=== PATIENT | male | born 1940 | race Two or more races ===

== ENCOUNTER 2016-06-05 17:13 | Emergency (ER) | payer OTHER, MEDICARE ==
--- NOTE | 2016-06-05 18:40 | REPUSA ---
CLINICAL HISTORY: Headache. TECHNIQUE: Multiple axial CT images were obtained through the brain without IV contrast material. COMMENTS: There is normal configuration of sella turcica. There are no intra or extra-axial collections. There is no mass effect or midline shift. There is no evidence of hematoma formation. No hydrocephalus is p resent. The ventricles are symmetrical. No abnormal calcifications are present. There is diffuse age-appropriate cerebellar and cerebral atrophy with proportionally dilated ventricl es and cortical sulci. There are bilateral periventricular and subcortical white matter hypolucencies compatible with mild c hronic microvascular disease. Otherwise, no significant focal abnormalities are seen either in the posterior fossa or supratentoria l compartment. IMPRESSION: 1. Age-appropriate cerebellar and cerebral atrophy. 2. Mild chronic microvascular disease. 3. No evidence of acute intracranial pathology. Thank you for your kind referral of this patient.
--- NOTE | 2016-06-05 19:00 | EDDOCDS ---
Nurse's Notes [facility] Name: Chris Montanez Age: 76 yrs Sex: Male : 1940 Arrival Date: 06/05/2016 Time: 17:13 Bed TR8 Private MD: Lorna Delgado Abdul; Lorna Delgado Diagnosis: Headache;Strain of muscle and tendon of back wall of thorax-right trapezius Presentation: 06/05 17:17 Presenting complaint: Patient states: that he has a pain on the top of his head that ms18 has been there for 2-3 days. Pt states that the pain goes into his R shoulder area. Adult Sepsis Screening: The patient does not have new or worsening altered mentation. Patient's respiratory rate is less than 22. Systolic blood pressure is greater than 100. Patient has a qSOFA score of 0- Negative Sepsis Screen. Suicide/Homicide risk assessment- the patient denies having any suicidal and/or homicidal ideations and does not present with any other emotional, behavioral or mental health complaints. Status: Patient is not a support services specialist or dependent. Transition of care: patient was not received from another setting of care. 17:17 Acuity: YAS Level 3 ms18 17:17 Method Of Arrival: Walkin/Carried/Asstd ms18 Triage Assessment: 17:24 General: Appears in no apparent distress, comfortable, Behavior is appropriate for age, ms18 cooperative. Pain: Location: right parietal area, right side of the back of head, back of neck, right trapezius and right scapular area Pain currently is 8 out of 10 on a pain scale. Neurological: Level of Consciousness is awake, alert, obeys commands, Oriented to person, place, time, Reports dizziness. Respiratory: Airway is patent Respiratory effort is even, unlabored. GI: Abdomen is non- distended Denies nausea, vomiting. Derm: Skin is pink, warm & dry. Historical: - Allergies: no known allergies; - Home Meds: 1. simvastatin 40 mg Oral tab 1 tab once daily 2. furosemide 80 mg Oral tab 1 tab 2 times per day 3. spironolactone 25 mg Oral tab 1 tab once daily 4. fenofibrate oral 48 mg oral 1 cap once daily 5. allopurinol 100 mg Oral tab 1 tab 2 times per day 6. glimepiride 4 mg Oral tab 1 tab once daily 7. levothyroxine 100 mcg Oral cap 1 cap once daily 8. Lantus 100 unit/mL Sub-Q soln 6 units in the AM - PMHx: High Cholesterol; Hypertension; Gout; Diabetes - IDDM: controlled; Hypothyroidism; - PSHx: Cataract Surgery- Bilateral; Cholecystectomy; - Social history: Smoking status: Patient states was never smoker of tobacco. No barriers to communication noted, The patient speaks fluent Ukrainian. - : The pt / caregiver states he / she is not on anticoagulants. Home medication list is obtained from the patient. - Exposure Risk Screening:: None identified. Screenin:56 Screening information is obtained from the patient. Fall risk: No risks identified. jjr Assistance ADL's: requires no assistance with activities of daily living. Abuse/DV Screen: The patient / caregiver reports he/she is: not in a situation that causes fear, pain or injury. Nutritional screening: No deficits noted. Advance Directives: Further advance directive information is declined. home support is adequate. Assessment: 18:54 General: Appears in no apparent distress, Behavior is appropriate for age. Pain: jjr Location: right trapezius and right side of the back of head. Neurological: No deficits noted. Respiratory: Airway is patent Respiratory effort is even, unlabored, Respiratory pattern is regular. Derm: No deficits noted. 18:59 General: dgtr does not want naprosyn rx due to her father's "kidney function" states jjr she will use ES tylenol. Vital Signs: 17:15 BP 142 / 71; Pulse 85; Resp 18; Temp 97.0(O); Pulse Ox 99% on R/A; Weight 79.38 kg (R); rs6 Height 5 ft. 8 in. (172.72 cm) (R); Pain 10/10; 17:15 Body Mass Index 26.61 (79.38 kg, 172.72 cm) rs6 Vitals: 17:15 Log In Time: June 05, 2016 at 17:15. 6 ED Course: 17:15 Patient visited by Simi Srinivasan, JESSICA. rs6 17:15 Lorna Delgado is Private Physician. rs6 17:15 Lorna Delgado is Private Physician. rs6 17:15 Patient moved to Waiting rs6 17:16 Patient visited by Simi Srinivasan PCA. rs6 17:16 Patient moved to Pre RCE rs6 17:18 Triage Initiated ms18 17:31 Patient moved to Triage 3 jb5 18:03 [facility]. dt4 18:03 Serge Duffy MD is Attending Physician. dt4 18:03 Patient visited by Felicity Whaley PA-C. dt4 18:26 Patient visited by Ya Nielsen PCA. jb5 18:49 CT Head Without Contrast Returned. EDMS 18:55 Patient moved to TR8 jb5 18:55 The patient / caregiver is instructed regarding the plan of care and ED course. jjr 18:56 No IV's were initiated during this patient's visit. No procedures done that require jjr assistance. Order Results: Radiology Order: CT Head Without Contrast Test: CT Head Without Contrast REASON FOR EXAMINATION: headache; ; CLINICAL HISTORY: Headache.; TECHNIQUE: Multiple axial CT images were obtained through the brain without IV contrast material.; COMMENTS:; There is normal configuration of sella turcica. There are no intra or extra-axial collections. There; is no mass effect or midline shift. There is no evidence of hematoma formation. No hydrocephalus is p; resent. The ventricles are symmetrical. No abnormal calcifications are present.; There is diffuse age-appropriate cerebellar and cerebral atrophy with proportionally dilated ventricl; es and cortical sulci.; There are bilateral periventricular and subcortical white matter hypolucencies compatible with mild c; hronic microvascular disease.; Otherwise, no significant focal abnormalities are seen either in the posterior fossa or supratentoria; l compartment.; IMPRESSION:; 1. Age-appropriate cerebellar and cerebral atrophy.; 2. Mild chronic microvascular disease.; 3. No evidence of acute intracranial pathology.; Thank you for your kind referral of this patient.; ; ; Outcome: 18:46 Discharge ordered by Provider. dt4 18:56 Discharge Assessment: patient administered narcotics - no. The following High Risk jjr Discharge criteria are identified: None. Discharged to home ambulatory, with parent. Condition: stable. Discharge instructions given to family, Instructed on discharge instructions, follow up and referral plans. Demonstrated understanding of instructions. CT Study completed. Property sent home with patient. 18:59 Patient left the ED. monikjr Signatures: Dispatcher [employer] EDMS Ya Nielsen, TWISTER HAND TWISTER HAND jb5 Geovanna Todd, RN RN jjr Felicity Whaley, PAMandoC PAJuanjose dt4 Grace Dorsey RN RN ms18 Craig, Simi, TWISTER HAND TWISTER HAND rs6 MTDD
--- NOTE | 2016-06-05 19:00 | EDDOCDS ---
Physician Documentation [facility] Name: Chris Montanez Age: 76 yrs Sex: Male : 1940 Arrival Date: 06/05/2016 Time: 17:13 Bed TR8 Private MD: Lorna Delgado Abdul; Lorna Delgado Disposition: 06/05/16 18:46 Discharged to Home/Self Care. Impression: Headache, Strain of muscle and tendon of back wall of thorax - right trapezius. - Condition is Stable. - Discharge Instructions: General Headache Without Cause, Muscle Strain. - Medication Reconciliation, Local Pharmacy Hours form. - Follow up: Emergency Department; When: As needed; Reason: Worsening of conditions. Follow up: Private Physician; When: 2 - 3 days; Reason: Wound/Symptom Recheck, Recheck today's complaints, Continuance of care. - Problem is new. - Symptoms are unchanged. Historical: - Allergies: no known allergies; - Home Meds: 1. simvastatin 40 mg Oral tab 1 tab once daily 2. furosemide 80 mg Oral tab 1 tab 2 times per day 3. spironolactone 25 mg Oral tab 1 tab once daily 4. fenofibrate oral 48 mg oral 1 cap once daily 5. allopurinol 100 mg Oral tab 1 tab 2 times per day 6. glimepiride 4 mg Oral tab 1 tab once daily 7. levothyroxine 100 mcg Oral cap 1 cap once daily 8. Lantus 100 unit/mL Sub-Q soln 6 units in the AM - PMHx: High Cholesterol; Hypertension; Gout; Diabetes - IDDM: controlled; Hypothyroidism; - PSHx: Cataract Surgery- Bilateral; Cholecystectomy; - Social history: Smoking status: Patient states was never smoker of tobacco. No barriers to communication noted, The patient speaks fluent Citizen Of [place]. - : The pt / caregiver states he / she is not on anticoagulants. Home medication list is obtained from the patient. - Exposure Risk Screening:: None identified. Vital Signs: 06/05 17:15 BP 142 / 71; Pulse 85; Resp 18; Temp 97.0(O); Pulse Ox 99% on R/A; Weight 79.38 kg / rs6 175 lbs (R); Height 5 ft. 8 in. (172.72 cm) (R); Pain 10/10; 17:15 Body Mass Index 26.61 (79.38 kg, 172.72 cm) rs6 MDM: 18:19 CT Head Without Contrast Ordered. EDMS Signatures: Dispatcher [employer] EDGeovanna Street, RN RN jjFelicity Arnett PA-C PAJuanjose dt4 Grace Dorsey RN RN ms18 MTDD
--- NOTE | 2016-06-07 20:00 | EDDOCDS ---
Physician Documentation [facility] Name: Chris Montanez Age: 76 yrs Sex: Male : 1940 Arrival Date: 06/05/2016 Time: 17:13 Bed TR8 Private MD: Lorna Delgado Abdul; Lorna Delgado Disposition: 06/05/16 18:46 Discharged to Home/Self Care. Impression: Headache, Strain of muscle and tendon of back wall of thorax - right trapezius. - Condition is Stable. - Discharge Instructions: General Headache Without Cause, Muscle Strain. - Medication Reconciliation, Local Pharmacy Hours form. - Follow up: Emergency Department; When: As needed; Reason: Worsening of conditions. Follow up: Private Physician; When: 2 - 3 days; Reason: Wound/Symptom Recheck, Recheck today's complaints, Continuance of care. - Problem is new. - Symptoms are unchanged. Historical: - Allergies: no known allergies; - Home Meds: 1. simvastatin 40 mg Oral tab 1 tab once daily 2. furosemide 80 mg Oral tab 1 tab 2 times per day 3. spironolactone 25 mg Oral tab 1 tab once daily 4. fenofibrate oral 48 mg oral 1 cap once daily 5. allopurinol 100 mg Oral tab 1 tab 2 times per day 6. glimepiride 4 mg Oral tab 1 tab once daily 7. levothyroxine 100 mcg Oral cap 1 cap once daily 8. Lantus 100 unit/mL Sub-Q soln 6 units in the AM - PMHx: High Cholesterol; Hypertension; Gout; Diabetes - IDDM: controlled; Hypothyroidism; - PSHx: Cataract Surgery- Bilateral; Cholecystectomy; - Social history: Smoking status: Patient states was never smoker of tobacco. No barriers to communication noted, The patient speaks fluent North Korean. - : The pt / caregiver states he / she is not on anticoagulants. Home medication list is obtained from the patient. - Exposure Risk Screening:: None identified. Vital Signs: 06/05 17:15 BP 142 / 71; Pulse 85; Resp 18; Temp 97.0(O); Pulse Ox 99% on R/A; Weight 79.38 kg / rs6 175 lbs (R); Height 5 ft. 8 in. (172.72 cm) (R); Pain 10/10; 17:15 Body Mass Index 26.61 (79.38 kg, 172.72 cm) rs6 MDM: 18:19 CT Head Without Contrast Ordered. EDMS :29 [facility] [place] Agreement was scanned into [employer] and attached to record. jp5 :29 Financial registration complete. jp5 22:41 T-Sheet-- Draft Copy was scanned into [employer] and attached to record. klr 06/06 16:18 Radiology Report was scanned into [employer] and attached to record. kf3 Signatures: Dispatcher MedHost EDVT Romero Vanessa, Reg Reg kf3 Geovanna Todd, RN RN jmonikr Felicity Whaley PA-C PA-C dt4 Grace Dorsey,RN RN ms18 Atif Joseph jp5 Brii Newsome The chart was reviewed and I authenticate all verbal orders and agree with the evaluation and treatment provided.Attachments: 06/05 19:29 [facility] [place] Payment Agreement 5 22:41 T-Sheet-- Draft Copy klr Chart Complete MTDD
--- NOTE | 2016-06-07 20:00 | EDDOCDS ---
Physician Documentation [facility] Name: Chris Montanez Age: 76 yrs Sex: Male : 1940 Arrival Date: 06/05/2016 Time: 17:13 Bed TR8 Private MD: Lorna Delgado Abdul; Lorna Delgado Disposition: 06/05/16 18:46 Discharged to Home/Self Care. Impression: Headache, Strain of muscle and tendon of back wall of thorax - right trapezius. - Condition is Stable. - Discharge Instructions: General Headache Without Cause, Muscle Strain. - Medication Reconciliation, Local Pharmacy Hours form. - Follow up: Emergency Department; When: As needed; Reason: Worsening of conditions. Follow up: Private Physician; When: 2 - 3 days; Reason: Wound/Symptom Recheck, Recheck today's complaints, Continuance of care. - Problem is new. - Symptoms are unchanged. Historical: - Allergies: no known allergies; - Home Meds: 1. simvastatin 40 mg Oral tab 1 tab once daily 2. furosemide 80 mg Oral tab 1 tab 2 times per day 3. spironolactone 25 mg Oral tab 1 tab once daily 4. fenofibrate oral 48 mg oral 1 cap once daily 5. allopurinol 100 mg Oral tab 1 tab 2 times per day 6. glimepiride 4 mg Oral tab 1 tab once daily 7. levothyroxine 100 mcg Oral cap 1 cap once daily 8. Lantus 100 unit/mL Sub-Q soln 6 units in the AM - PMHx: High Cholesterol; Hypertension; Gout; Diabetes - IDDM: controlled; Hypothyroidism; - PSHx: Cataract Surgery- Bilateral; Cholecystectomy; - Social history: Smoking status: Patient states was never smoker of tobacco. No barriers to communication noted, The patient speaks fluent Kosovan. - : The pt / caregiver states he / she is not on anticoagulants. Home medication list is obtained from the patient. - Exposure Risk Screening:: None identified. Vital Signs: 06/05 17:15 BP 142 / 71; Pulse 85; Resp 18; Temp 97.0(O); Pulse Ox 99% on R/A; Weight 79.38 kg / rs6 175 lbs (R); Height 5 ft. 8 in. (172.72 cm) (R); Pain 10/10; 17:15 Body Mass Index 26.61 (79.38 kg, 172.72 cm) rs6 MDM: 18:19 CT Head Without Contrast Ordered. EDMS :29 [facility] [place] was scanned into [employer] and attached to record. jp5 :29 Financial registration complete. jp5 22:41 T-Sheet-- Draft Copy was scanned into [employer] and attached to record. klr 06/06 16:18 Radiology Report was scanned into [employer] and attached to record. kf3 Signatures: Dispatcher MedHost EDWI Romero Vanessa, Reg Reg kf3 Geovanna Todd, RN RN jmonikr Felicity Whaley PA-C PA-C dt4 Grace Dorsey,RN RN ms18 Atif Joseph jp5 Brii Newsome The chart was reviewed and I authenticate all verbal orders and agree with the evaluation and treatment provided.Attachments: 06/05 19:29 [facility] [place] Agreement 5 22:41 T-Sheet-- Draft Copy klr Chart Complete MTDD
--- NOTE | 2016-06-07 20:00 | EDDOCDS ---
Nurse's Notes [facility] Name: Chris Montanez Age: 76 yrs Sex: Male : 1940 Arrival Date: 06/05/2016 Time: 17:13 Bed TR8 Private MD: Lorna Delgado Abdul; Lorna Delgado Diagnosis: Headache;Strain of muscle and tendon of back wall of thorax-right trapezius Presentation: 06/05 17:17 Presenting complaint: Patient states: that he has a pain on the top of his head that ms18 has been there for 2-3 days. Pt states that the pain goes into his R shoulder area. Adult Sepsis Screening: The patient does not have new or worsening altered mentation. Patient's respiratory rate is less than 22. Systolic blood pressure is greater than 100. Patient has a qSOFA score of 0- Negative Sepsis Screen. Suicide/Homicide risk assessment- the patient denies having any suicidal and/or homicidal ideations and does not present with any other emotional, behavioral or mental health complaints. 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 Transition of care: patient was not received from another setting of care. 17:17 Acuity: YAS Level 3 ms18 17:17 Method Of Arrival: Walkin/Carried/Asstd ms18 Triage Assessment: 17:24 General: Appears in no apparent distress, comfortable, Behavior is appropriate for age, ms18 cooperative. Pain: Location: right parietal area, right side of the back of head, back of neck, right trapezius and right scapular area Pain currently is 8 out of 10 on a pain scale. Neurological: Level of Consciousness is awake, alert, obeys commands, Oriented to person, place, time, Reports dizziness. Respiratory: Airway is patent Respiratory effort is even, unlabored. GI: Abdomen is non- distended Denies nausea, vomiting. Derm: Skin is pink, warm & dry. Historical: - Allergies: no known allergies; - Home Meds: 1. simvastatin 40 mg Oral tab 1 tab once daily 2. furosemide 80 mg Oral tab 1 tab 2 times per day 3. spironolactone 25 mg Oral tab 1 tab once daily 4. fenofibrate oral 48 mg oral 1 cap once daily 5. allopurinol 100 mg Oral tab 1 tab 2 times per day 6. glimepiride 4 mg Oral tab 1 tab once daily 7. levothyroxine 100 mcg Oral cap 1 cap once daily 8. Lantus 100 unit/mL Sub-Q soln 6 units in the AM - PMHx: High Cholesterol; Hypertension; Gout; Diabetes - IDDM: controlled; Hypothyroidism; - PSHx: Cataract Surgery- Bilateral; Cholecystectomy; - Social history: Smoking status: Patient states was never smoker of tobacco. No barriers to communication noted, The patient speaks fluent Spanish. - : The pt / caregiver states he / she is not on anticoagulants. Home medication list is obtained from the patient. - Exposure Risk Screening:: None identified. Screenin:56 Screening information is obtained from the patient. Fall risk: No risks identified. jjr Assistance ADL's: requires no assistance with activities of daily living. Abuse/DV Screen: The patient / caregiver reports he/she is: not in a situation that causes fear, pain or injury. Nutritional screening: No deficits noted. Advance Directives: Further advance directive information is declined. home support is adequate. Assessment: 18:54 General: Appears in no apparent distress, Behavior is appropriate for age. Pain: jjr Location: right trapezius and right side of the back of head. Neurological: No deficits noted. Respiratory: Airway is patent Respiratory effort is even, unlabored, Respiratory pattern is regular. Derm: No deficits noted. 18:59 General: dgtr does not want naprosyn rx due to her father's "kidney function" states jjr she will use ES tylenol. Vital Signs: 17:15 BP 142 / 71; Pulse 85; Resp 18; Temp 97.0(O); Pulse Ox 99% on R/A; Weight 79.38 kg (R); rs6 Height 5 ft. 8 in. (172.72 cm) (R); Pain 10/10; 17:15 Body Mass Index 26.61 (79.38 kg, 172.72 cm) rs6 Vitals: 17:15 Log In Time: June 05, 2016 at 17:15. 6 ED Course: 17:15 Patient visited by Simi Srinivasna, JESSICA. rs6 17:15 Lorna Delgado is Private Physician. rs6 17:15 Lorna Delgado is Private Physician. rs6 17:15 Patient moved to Waiting rs6 17:16 Patient visited by Simi Srinivasan PCA. rs6 17:16 Patient moved to Pre RCE rs6 17:18 Triage Initiated ms18 17:31 Patient moved to Triage 3 jb5 18:03 Felicity Whaley PA-C is PHCP. dt4 18:03 Serge Duffy MD is Attending Physician. dt4 18:03 Patient visited by Felicity Whaley PA-C. dt4 18:26 Patient visited by Ya Nielsen PCA. jb5 18:49 CT Head Without Contrast Returned. EDMS 18:55 Patient moved to TR8 jb5 18:55 The patient / caregiver is instructed regarding the plan of care and ED course. jjr 18:56 No IV's were initiated during this patient's visit. No procedures done that require jjr assistance. 19:29 [facility] Payment Agreement was scanned into [employer] and attached to record. jp5 22:41 T-Sheet-- Draft Copy was scanned into [employer] and attached to record. klr 02 16:18 Radiology Report was scanned into [employer] and attached to record. kf3 Order Results: Radiology Order: CT Head Without Contrast Test: CT Head Without Contrast REASON FOR EXAMINATION: headache; ; CLINICAL HISTORY: Headache.; TECHNIQUE: Multiple axial CT images were obtained through the brain without IV contrast material.; COMMENTS:; There is normal configuration of sella turcica. There are no intra or extra-axial collections. There; is no mass effect or midline shift. There is no evidence of hematoma formation. No hydrocephalus is p; resent. The ventricles are symmetrical. No abnormal calcifications are present.; There is diffuse age-appropriate cerebellar and cerebral atrophy with proportionally dilated ventricl; es and cortical sulci.; There are bilateral periventricular and subcortical white matter hypolucencies compatible with mild c; hronic microvascular disease.; Otherwise, no significant focal abnormalities are seen either in the posterior fossa or supratentoria; l compartment.; IMPRESSION:; 1. Age-appropriate cerebellar and cerebral atrophy.; 2. Mild chronic microvascular disease.; 3. No evidence of acute intracranial pathology.; Thank you for your kind referral of this patient.; ; ; Outcome: 06/05 18:46 Discharge ordered by Provider. dt4 18:56 Discharge Assessment: patient administered narcotics - no. The following High Risk jjr Discharge criteria are identified: None. Discharged to home ambulatory, with parent. Condition: stable. Discharge instructions given to family, Instructed on discharge instructions, follow up and referral plans. Demonstrated understanding of instructions. CT Study completed. Property sent home with patient. 18:59 Patient left the ED. jjr Signatures: Dispatcher [employer] EDMS Ya Nielsen, DIRECTOR OF RESEARCH DIRECTOR OF RESEARCH jb5 Romero Vanessa, Reg Reg kf3 Geovanna Todd, RN RN jjr Felicity Whaley, PA-C PA-C dt4 Grace Dorsey,NIRAV RN ms18 Simi Srinivasan, DIRECTOR OF RESEARCH DIRECTOR OF RESEARCH rs6 Atif Joseph Kathie klr Chart Complete MTDDeirdre
== END 2016-06-05 18:59 | disposition home or self-care (01) ==
LOC: M ED 17:13
DX: R51 Headache (principal); S29.012A Strain of muscle and tendon of back wall of thorax, initial encounter; X58.XXXA Exposure to other specified factors, initial encounter; Y92.89 Other specified places as the place of occurrence of the external cause; Y93.89 Activity, other specified; Y99.8 Other external cause status; E78.00 Pure hypercholesterolemia, unspecified; I10 Essential (primary) hypertension; M10.9 Gout, unspecified; E11.9 Type 2 diabetes mellitus without complications; E03.9 Hypothyroidism, unspecified; Z79.4 Long term (current) use of insulin; Z79.899 Other long term (current) drug therapy

== ENCOUNTER → 2016-09-05 | Outpatient (CLI) | payer MEDICARE ==
--- NOTE | 2016-09-06 07:34 | REP ---
LEFT FOOT: HISTORY: Pain after trauma. COMPARISON: None. There is a transverse fracture through the base of the proximal diaphysis of the proximal phalanx of the 2nd digit. This is nondisplaced. Large plantar and retrocalcaneal heel spurs are present. There are degenerative changes seen throughout the foot. IMPRESSION: Fracture and chronic changes as described above. Signed by Jeffery Jamil DO 09/06/2016 09:54 A
== END ==
LOC: M WUC 11:53
PROVIDERS: ATTEND Physician Assistant
DX: S92.515A Nondisplaced fracture of proximal phalanx of left lesser toe(s), initial encounter for closed fracture (principal); M77.30 Calcaneal spur, unspecified foot; M19.072 Primary osteoarthritis, left ankle and foot; X58.XXXA Exposure to other specified factors, initial encounter; Y92.89 Other specified places as the place of occurrence of the external cause; Y93.89 Activity, other specified; Y99.8 Other external cause status

== ENCOUNTER → 2016-09-15 | Outpatient (REF) | payer MEDICARE ==
[2016-09-15 19:25] LABS: ALBUMIN 3.5 GM/DL (3.2-5.2); ALBUMIN/GLOBULIN RATIO 0.85 (1.00-1.93); BILIRUBIN,DIRECT 0.3 MG/DL (0.0-0.2); BILIRUBIN,TOTAL 0.8 MG/DL (0.2-1.0); TOTAL PROTEIN 7.6 GM/DL (6.4-8.2)
== END ==
LOC: M LAB REF 16:51
PROVIDERS: ATTEND Internal Medicine Nephrology
DX: N18.3 Chronic kidney disease, stage 3 (moderate) (principal); E78.2 Mixed hyperlipidemia; E03.9 Hypothyroidism, unspecified

== ENCOUNTER 2017-06-12 03:45 | Inpatient (IN) | payer MEDICARE ==
[2017-06-12] MEDS: NS 500 ML IV (04:15)
[2017-06-12 04:30] LABS: BASO % 0.2 % (0.0-1.0); EOS % 0.2 % (0.0-3.0); HEMATOCRIT 35.7 % (42.0-52.0); IMMATURE GRANULOCYTE % 0.5 % (0-3.0); LYMPH # 0.9 10^3/uL (1.5-4.5); MEAN CORPUSCULAR HEMOGLOBIN 30.6 pg (27.0-33.0); MEAN CORPUSCULAR HGB CONC 33.6 g/dl (32.0-36.5); MEAN CORPUSCULAR VOLUME 91.1 fl (80.0-96.0); MONO # 0.5 10^3/uL (0.0-0.8); MONO % 9.1 % (0.0-5.0); NEUTROPHILS # 4.3 10^3/uL (1.8-7.7); PLATELET COUNT, AUTOMATED 147 10^3/uL (150-450); RED BLOOD COUNT 3.92 10^6/uL (4.30-6.10); RED CELL DISTRIBUTION WIDTH 15.9 % (11.5-14.5); WHITE BLOOD COUNT 5.7 10^3/uL (4.0-10.0)
[2017-06-12 04:50] LABS: ALBUMIN 3.2 GM/DL (3.2-5.2); ALKALINE PHOSPHATASE 48 U/L (45-117); ALT/SGPT 30 U/L (12-78); ANION GAP 10 MEQ/L (8-16); AST/SGOT 51 U/L (7-37); BILIRUBIN,DIRECT 0.2 MG/DL (0.0-0.2); BILIRUBIN,TOTAL 0.8 MG/DL (0.2-1.0); BLOOD UREA NITROGEN 44 MG/DL (7-18); CARBON DIOXIDE LEVEL 24 MEQ/L (21-32); CHLORIDE LEVEL 104 MEQ/L (98-107); CREATININE FOR GFR 2.39 MG/DL (0.70-1.30); GLOMERULAR FILTRATION RATE 28.2 (>42); GLUCOSE, FASTING 72 MG/DL (70-100); LIPASE 1757 U/L (73-393); POTASSIUM SERUM 3.8 MEQ/L (3.5-5.1); SODIUM LEVEL 138 MEQ/L (136-145); TOTAL PROTEIN 7.8 GM/DL (6.4-8.2)
[2017-06-12 04:51] LABS: LACTIC ACID SEPSIS PROTOCOL 1.5 MMOL/L (0.4-2.0)
[2017-06-12 05:33] LABS: INFLUENZA A AMPLIFICATION NEGATIVE (NEGATIVE); INFLUENZA B AMPLIFICATION NEGATIVE (NEGATIVE)
[2017-06-12] MEDS: MORPHINE 2 MG/ML 1ML SYRINGE (J2270) IV (06:15)
[2017-06-12] MEDS: METOCLOPRAMIDE INJ 10MG/2ML VIAL (J2765) IV (06:15)
[2017-06-12] MEDS ORDERED: ONDANSETRON 4MG/2ML VIAL (J2405) IV (08:15)
[2017-06-12] MEDS ORDERED: ACETAMINOPHEN TAB 650MG DOSE (2X325MG) PO (08:15)
[2017-06-12] MEDS ORDERED: PERCOCET 5MG/325MG TAB PO (08:15)
[2017-06-12] MEDS ORDERED: MORPHINE 4 MG/ML 1ML VIAL (J2270) IV (08:15)
[2017-06-12 08:39] LABS: CK-MB VALUE MASS 1.4 NG/ML (0.0-3.6); CPK CREATINE PHOSPHOKINASE 112 U/L (39-308); MB/CK RELATIVE INDEX 1.25 (< OR =4); TROPONIN I < 0.02 NG/ML (< 0.10)
[2017-06-12] MEDS ORDERED: ENOXAPARIN 40 MG/0.4 ML SYRINGE (J1650) SC (09:00)
[2017-06-12] MEDS: NS 1,000 ML IV ×2 (09:00→22:48)
[2017-06-12] MEDS ORDERED: GLUCAGON FOR INJ 1 MG VIAL (J1610) SC (10:30)
[2017-06-12] MEDS: ENOXAPARIN 30 MG/0.3 ML SYR (J1650) SC (10:50)
[2017-06-12] MEDS: HumaLOG INSULIN (NovoLOG) PER UNIT SC ×3 (12:00→21:00)
[2017-06-12 12:25] LABS: BEDSIDE GLUCOSE 77 MG/DL (83-110)
[2017-06-12] MEDS: ALLOPURINOL 100 MG TAB PO ×2 (12:46→21:48)
[2017-06-12] MEDS: FENOFIBRATE 48 MG TAB (TRICOR) PO (12:47)
[2017-06-12] MEDS: GLUCOSE 4 GM CHEW TABLET PO (17:34)
[2017-06-12] MEDS: DEXTROSE 50% 50 ML SYRINGE IV (18:15)
[2017-06-12] MEDS: LEVEMIR (INSULIN DETEMIR) 1 UNITS/0.01ML SC (19:00)
[2017-06-12] MEDS ORDERED: FUROSEMIDE 80 MG TAB PO (21:00)
[2017-06-12] MEDS: SIMVASTATIN 40 MG TAB PO (21:48)
[2017-06-13 05:43] LABS: BASO % 0.2 % (0.0-1.0); EOS # 0.2 10^3/uL (0.0-0.50); EOS % 2.7 % (0.0-3.0); HEMATOCRIT 28.5 % (42.0-52.0); IMMATURE GRANULOCYTE % 0.5 % (0-3.0); LYMPH % 32.1 % (24.0-44.0); MEAN CORPUSCULAR HEMOGLOBIN 30.1 pg (27.0-33.0); MEAN CORPUSCULAR HGB CONC 33.3 g/dl (32.0-36.5); MEAN CORPUSCULAR VOLUME 90.2 fl (80.0-96.0); MONO # 0.7 10^3/uL (0.0-0.8); MONO % 10.5 % (0.0-5.0); NEUTROPHILS # 3.4 10^3/uL (1.8-7.7); PLATELET COUNT, AUTOMATED 100 10^3/uL (150-450); RED BLOOD COUNT 3.16 10^6/uL (4.30-6.10); RED CELL DISTRIBUTION WIDTH 15.8 % (11.5-14.5); WHITE BLOOD COUNT 6.3 10^3/uL (4.0-10.0)
[2017-06-13 05:53] LABS: HEMOGLOBIN 9.5 g/dl (14.0-18.0)
[2017-06-13] MEDS: LEVOTHYROXINE 100MCG TABLET (0.1MG) PO (06:04)
[2017-06-13 06:08] LABS: ALKALINE PHOSPHATASE 52 U/L (45-117); ALT/SGPT 35 U/L (12-78); ANION GAP 8 MEQ/L (8-16); AST/SGOT 46 U/L (7-37); BILIRUBIN,TOTAL 0.4 MG/DL (0.2-1.0); BLOOD UREA NITROGEN 26 MG/DL (7-18); CALCIUM LEVEL 7.1 MG/DL (8.8-10.2); CARBON DIOXIDE LEVEL 22 MEQ/L (21-32); CHLORIDE LEVEL 108 MEQ/L (98-107); CHOLESTEROL LEVEL 59 MG/DL (<200); CHOLESTEROL RISK RATIO 2.107 (<5); CREATININE FOR GFR 1.91 MG/DL (0.70-1.30); GLOMERULAR FILTRATION RATE 36.6 (>42); GLUCOSE, FASTING 106 MG/DL (70-100); HDL CHOLESTEROL 28 MG/DL (>40); LDL CHOLESTEROL 5.4 MG/DL (<100); NON-HDL-C 31 MG/DL; SODIUM LEVEL 138 MEQ/L (136-145); TRIGLYCERIDES LEVEL 128 MG/DL (<150)
[2017-06-13 06:21] LABS: ALBUMIN/GLOBULIN RATIO 0.66 (1.00-1.93)
[2017-06-13 06:23] LABS: TOTAL PROTEIN 5.8 GM/DL (6.4-8.2)
[2017-06-13 06:24] LABS: ALBUMIN 2.3 GM/DL (3.2-5.2)
[2017-06-13] MEDS: HumaLOG INSULIN (NovoLOG) PER UNIT SC ×4 (07:28→20:23)
[2017-06-13] MEDS: ENOXAPARIN 30 MG/0.3 ML SYR (J1650) SC (08:14)
[2017-06-13] MEDS: FENOFIBRATE 48 MG TAB (TRICOR) PO (08:14)
[2017-06-13] MEDS: ALLOPURINOL 100 MG TAB PO ×2 (08:14→20:22)
[2017-06-13] MEDS ORDERED: SPIRONOLACTONE 25 MG TAB PO (09:00)
[2017-06-13 09:48] LABS: LIPASE 891 U/L (73-393)
[2017-06-13] MEDS: SIMVASTATIN 40 MG TAB PO (20:22)
[2017-06-13] MEDS: LEVEMIR (INSULIN DETEMIR) 1 UNITS/0.01ML SC (20:23)
[2017-06-14] MEDS: LEVOTHYROXINE 100MCG TABLET (0.1MG) PO (05:38)
[2017-06-14 06:02] LABS: BASO % 0.4 % (0.0-1.0); EOS # 0.2 10^3/uL (0.0-0.50); EOS % 3.6 % (0.0-3.0); HEMATOCRIT 30.6 % (42.0-52.0); HEMOGLOBIN 10.1 g/dl (14.0-18.0); IMMATURE GRANULOCYTE % 0.4 % (0-3.0); LYMPH # 2.6 10^3/uL (1.5-4.5); LYMPH % 46.2 % (24.0-44.0); MEAN CORPUSCULAR HEMOGLOBIN 30.3 pg (27.0-33.0); MEAN CORPUSCULAR VOLUME 91.9 fl (80.0-96.0); MONO # 0.6 10^3/uL (0.0-0.8); MONO % 10.4 % (0.0-5.0); NEUTROPHILS # 2.2 10^3/uL (1.8-7.7); PLATELET COUNT, AUTOMATED 104 10^3/uL (150-450); RED BLOOD COUNT 3.33 10^6/uL (4.30-6.10); RED CELL DISTRIBUTION WIDTH 15.8 % (11.5-14.5); WHITE BLOOD COUNT 5.6 10^3/uL (4.0-10.0)
[2017-06-14 06:26] LABS: ALBUMIN 2.4 GM/DL (3.2-5.2); ALKALINE PHOSPHATASE 61 U/L (45-117); ALT/SGPT 29 U/L (12-78); ANION GAP 7 MEQ/L (8-16); AST/SGOT 31 U/L (7-37); BILIRUBIN,TOTAL 0.5 MG/DL (0.2-1.0); BLOOD UREA NITROGEN 25 MG/DL (7-18); CALCIUM LEVEL 7.7 MG/DL (8.8-10.2); CARBON DIOXIDE LEVEL 20 MEQ/L (21-32); CHLORIDE LEVEL 112 MEQ/L (98-107); CREATININE FOR GFR 1.75 MG/DL (0.70-1.30); GLOMERULAR FILTRATION RATE 40.4 (>42); GLUCOSE, FASTING 177 MG/DL (70-100); LIPASE 585 U/L (73-393); POTASSIUM SERUM 4.3 MEQ/L (3.5-5.1); SODIUM LEVEL 139 MEQ/L (136-145); TOTAL PROTEIN 6.4 GM/DL (6.4-8.2)
[2017-06-14] MEDS: INFLUENZA VIRUS VACCINE HIGH DOSE 0.5 ML SYRINGE (90662) IM (08:09)
[2017-06-14] MEDS: ENOXAPARIN 30 MG/0.3 ML SYR (J1650) SC (08:10)
[2017-06-14] MEDS: FENOFIBRATE 48 MG TAB (TRICOR) PO (08:10)
[2017-06-14] MEDS: HumaLOG INSULIN (NovoLOG) PER UNIT SC (08:10)
[2017-06-14] MEDS: ALLOPURINOL 100 MG TAB PO (08:10)
[2017-06-14 12:09] LABS: BEDSIDE GLUCOSE 194 MG/DL (83-110)
[2017-06-14 12:09] LABS: BEDSIDE GLUCOSE 182 MG/DL (83-110)
[2017-06-14 12:09] LABS: BEDSIDE GLUCOSE 99 MG/DL (83-110)
[2017-06-14 12:09] LABS: BEDSIDE GLUCOSE 81 MG/DL (83-110)
[2017-06-14 12:09] LABS: BEDSIDE GLUCOSE 51 MG/DL (83-110)
[2017-06-14 12:09] LABS: BEDSIDE GLUCOSE 71 MG/DL (83-110)
[2017-06-14 12:09] LABS: BEDSIDE GLUCOSE 48 MG/DL (83-110)
[2017-06-14 12:09] LABS: BEDSIDE GLUCOSE 55 MG/DL (83-110)
[2017-06-14 12:09] LABS: BEDSIDE GLUCOSE 117 MG/DL (83-110)
[2017-06-14 12:09] LABS: BEDSIDE GLUCOSE 50 MG/DL (83-110)
[2017-06-14 12:09] LABS: BEDSIDE GLUCOSE 126 MG/DL (83-110)
[2017-06-14 12:09] LABS: BEDSIDE GLUCOSE 132 MG/DL (83-110)
== END 2017-06-14 08:50 | disposition home or self-care (01) | DRG 440 ==
LOC: M ED 03:45 → M ED INP 08:08 → M MSPAV 12:58
DX: K85.90 Acute pancreatitis without necrosis or infection, unspecified (principal); I12.9 Hypertensive chronic kidney disease with stage 1 through stage 4 chronic kidney disease, or unspecified chronic kidney disease; E11.22 Type 2 diabetes mellitus with diabetic chronic kidney disease; E11.649 Type 2 diabetes mellitus with hypoglycemia without coma; E78.5 Hyperlipidemia, unspecified; N18.3 Chronic kidney disease, stage 3 (moderate); K76.0 Fatty (change of) liver, not elsewhere classified; Z79.84 Long term (current) use of oral hypoglycemic drugs

== ENCOUNTER → 2017-07-19 | Outpatient (REF) | payer MEDICARE ==
[2017-07-19 19:33] LABS: ALBUMIN 3.6 GM/DL (3.2-5.2); ALBUMIN/GLOBULIN RATIO 0.86 (1.00-1.93); ALKALINE PHOSPHATASE 78 U/L (45-117); ALT/SGPT 33 U/L (12-78); AST/SGOT 33 U/L (7-37); BILIRUBIN,DIRECT 0.2 MG/DL (0.0-0.2); BILIRUBIN,TOTAL 0.5 MG/DL (0.2-1.0); CHOLESTEROL LEVEL 106 MG/DL (<200); CHOLESTEROL RISK RATIO 3.028 (<5); HDL CHOLESTEROL 35 MG/DL (>40); LDL CHOLESTEROL 39.6 MG/DL (<100); NON-HDL-C 71 MG/DL; THYROID STIMULATING HORMONE 0.917 uIU/ML (0.358-3.740); TOTAL PROTEIN 7.8 GM/DL (6.4-8.2); TRIGLYCERIDES LEVEL 157 MG/DL (<150)
== END ==
LOC: M LAB REF 17:32
DX: N18.3 Chronic kidney disease, stage 3 (moderate) (principal); E78.2 Mixed hyperlipidemia; E03.9 Hypothyroidism, unspecified
CPT/HCPCS: 84443

== ENCOUNTER 2017-10-10 10:53 | Emergency (ER) | payer MEDICARE ==
[2017-10-10] MEDS: PERCOCET 5MG/325MG TAB PO (11:33)
== END 2017-10-10 11:36 | disposition home or self-care (01) ==
LOC: M ED 10:53
DX: K08.89 Other specified disorders of teeth and supporting structures (principal); R68.84 Jaw pain; I12.9 Hypertensive chronic kidney disease with stage 1 through stage 4 chronic kidney disease, or unspecified chronic kidney disease; E78.9 Disorder of lipoprotein metabolism, unspecified; E11.22 Type 2 diabetes mellitus with diabetic chronic kidney disease; N18.1 Chronic kidney disease, stage 1; Z79.899 Other long term (current) drug therapy; Z79.2 Long term (current) use of antibiotics
CPT/HCPCS: 99282

== ENCOUNTER 2018-01-11 11:49 | Inpatient (IN) | payer MEDICARE ==
[2018-01-11] MEDS: LR 1,000 ML IV ×3 (12:59→21:53)
[2018-01-11] MEDS ORDERED: MIDAZOLAM INJ 2 MG/2 ML VIAL (J2250) As Ordered ×2 (13:28→14:48)
[2018-01-11] MEDS ORDERED: fentaNYL 100 MCG/2 ML INJECTION (J3010) As Ordered ×2 (13:28→14:51)
[2018-01-11 13:42] LABS: BEDSIDE GLUCOSE 55 MG/DL (83-110)
[2018-01-11] MEDS: MIDAZOLAM INJ 2 MG/2 ML VIAL (J2250) IV ×2 (13:47→14:37)
[2018-01-11] MEDS: D5W/0.45% SODIUM CHLORIDE 1,000 ML IV (13:50)
[2018-01-11 13:53] LABS: GLUCOSE, FASTING 72 MG/DL (70-100)
[2018-01-11] MEDS: fentaNYL 100 MCG/2 ML INJECTION (J3010) IV (14:37)
[2018-01-11] MEDS ORDERED: LIDOCAINE 2% INJ 100 MG/5 ML SDV (FOR ANES.) As Ordered ×2 (14:48→17:37)
[2018-01-11] MEDS ORDERED: PROPOFOL 200 MG/20 ML VIAL As Ordered ×3 (14:48→17:35)
[2018-01-11] MEDS ORDERED: ONDANSETRON 4MG/2ML VIAL (J2405) As Ordered ×2 (14:48→17:36)
[2018-01-11] MEDS ORDERED: TRANEXAMIC ACID 100 MG/ML 10ML VIAL As Ordered (14:48)
[2018-01-11 15:00] LABS: BEDSIDE GLUCOSE 126 MG/DL (83-110)
[2018-01-11] MEDS ORDERED: LIDOCAINE 2% MDV 20 ML VIAL (15:07)
[2018-01-11] MEDS ORDERED: ROPIvacaine 0.5% 30 ML INJECTION (J2795 PER 1MG) (15:07)
[2018-01-11] MEDS: ceFAZolin 1GM INJ (J0690 PER 500MG) As Ordered (16:50)
[2018-01-11] MEDS: TRANEXAMIC ACID 100 MG/ML 10ML VIAL As Ordered (16:50)
[2018-01-11] MEDS: BUPIVACAINE LIPOSOME/PF 1.3% 20 ML VIAL (13.3MG/ML)(EXPAREL) As Ordered (16:50)
[2018-01-11] MEDS: EPINEPHrine INJ 1 MG/ML 1ML AMP As Ordered (16:50)
[2018-01-11] MEDS ORDERED: PHENYLephrine HCL 500 MCG/5 ML (100MCG/ML) SYRINGE (J2370) As Ordered (17:36)
[2018-01-11] MEDS ORDERED: ePHEDrine SULFATE 25 MG/5 ML(5MG/ML) SYRINGE As Ordered (17:36)
[2018-01-11] MEDS ORDERED: MORPHINE 1MG/ML IN 0.9% NACL 100ML IV BAG As Ordered (17:36)
[2018-01-11] MEDS ORDERED: BUPIVACAINE/DEXTROSE 0.75% 2 ML AMP As Ordered (17:36)
[2018-01-11 17:53] LABS: BEDSIDE GLUCOSE 209 MG/DL (83-110)
[2018-01-11] MEDS ORDERED: FLEET ENEMA PR (18:00)
[2018-01-11] MEDS ORDERED: ONDANSETRON 4MG/2ML VIAL (J2405) IV ×3 (18:00→19:00)
[2018-01-11] MEDS ORDERED: NALBUPHINE HCL 10 MG/ML AMP (J2300) IV (18:15)
[2018-01-11] MEDS ORDERED: EPIDURAL/PCA KEYS XX (18:15)
[2018-01-11] MEDS ORDERED: NALOXONE INJ 0.4 MG/1 ML VIAL (J2310) IV (18:15)
[2018-01-11] MEDS ORDERED: diphenhydrAMINE INJ 50MG/ML VIAL (J1200) IV (18:15)
[2018-01-11] MEDS: MORPHINE 1MG/ML IN 0.9% NACL 100ML IV BAG IV (18:35)
[2018-01-11] MEDS ORDERED: HumaLOG INSULIN (NovoLOG) PER UNIT As Ordered (18:39)
[2018-01-11] MEDS: HumaLOG INSULIN (NovoLOG) PER UNIT SC ×2 (18:40→21:00)
[2018-01-11] MEDS ORDERED: fentaNYL 100 MCG/2 ML INJECTION (J3010) IV (19:00)
[2018-01-11] MEDS ORDERED: GLUCAGON FOR INJ 1 MG VIAL (J1610) SC (19:00)
[2018-01-11] MEDS ORDERED: GLUCOSE 4 GM CHEW TABLET PO (19:00)
[2018-01-11 20:31] LABS: BEDSIDE GLUCOSE 101 MG/DL (83-110)
[2018-01-11] MEDS: LEVEMIR (INSULIN DETEMIR) 1 UNITS/0.01ML SC (21:00)
[2018-01-11] MEDS: SENOKOT S TAB PO (22:06)
[2018-01-11] MEDS: ALLOPURINOL 100 MG TAB PO (22:06)
[2018-01-11] MEDS: WARFARIN SOD 5 MG TAB PO (22:06)
[2018-01-11 22:12] LABS: BEDSIDE GLUCOSE 57 MG/DL (83-110)
[2018-01-11] MEDS: DEXTROSE 50% 50 ML SYRINGE IV (23:21)
[2018-01-12] MEDS: LEVOTHYROXINE 100MCG TABLET (0.1MG) PO (05:56)
[2018-01-12] MEDS ORDERED: ONDANSETRON 4 MG TAB (S0181) PO (06:30)
[2018-01-12 07:19] LABS: HEMATOCRIT 30.2 % (42.0-52.0); HEMOGLOBIN 10.3 g/dl (13.5-17.5); MEAN CORPUSCULAR HEMOGLOBIN 30.6 pg (27.0-33.0); MEAN CORPUSCULAR HGB CONC 34.1 g/dl (32.0-36.5); MEAN CORPUSCULAR VOLUME 89.6 fl (80.0-96.0); PLATELET COUNT, AUTOMATED 131 10^3/uL (150-450); RED BLOOD COUNT 3.37 10^6/uL (4.30-6.10); RED CELL DISTRIBUTION WIDTH 16.2 % (11.5-14.5); WHITE BLOOD COUNT 7.5 10^3/uL (4.0-10.0)
[2018-01-12 07:32] LABS: PROTHROMBIN TIME 14.3 SECONDS (12.1-14.4)
[2018-01-12 08:08] LABS: ANION GAP 8 MEQ/L (8-16); BLOOD UREA NITROGEN 29 MG/DL (7-18); CALCIUM LEVEL 7.9 MG/DL (8.8-10.2); CARBON DIOXIDE LEVEL 22 MEQ/L (21-32); CHLORIDE LEVEL 107 MEQ/L (98-107); CREATININE FOR GFR 2.32 MG/DL (0.70-1.30); GLOMERULAR FILTRATION RATE 29.2 (>42); GLUCOSE, FASTING 268 MG/DL (70-100); MAGNESIUM LEVEL 2.4 MG/DL (1.8-2.4); POTASSIUM SERUM 4.8 MEQ/L (3.5-5.1); SODIUM LEVEL 137 MEQ/L (136-145); T UPTAKE 35 % (33-40); THYROXINE (T4) 8.5 UG/DL (4.5-12.0)
[2018-01-12] MEDS: SENOKOT S TAB PO ×2 (09:00→21:50)
[2018-01-12] MEDS: MIRALAX *UNIT DOSE* 17GM PACKET PO (09:00)
[2018-01-12] MEDS: MOM 30ML SUSPENSION UDC PO (09:00)
[2018-01-12] MEDS: FUROSEMIDE 80 MG TAB PO ×2 (09:00→21:50)
[2018-01-12] MEDS: HumaLOG INSULIN (NovoLOG) PER UNIT SC ×4 (09:10→21:48)
[2018-01-12 09:20] LABS: ESTIMATED AVERAGE GLUCOSE 235 MG/DL (60-110); HEMOGLOBIN A1c 9.8 %
[2018-01-12] MEDS: SPIRONOLACTONE 25 MG TAB PO (10:14)
[2018-01-12] MEDS: SIMVASTATIN 40 MG TAB PO (10:15)
[2018-01-12] MEDS: LEVEMIR (INSULIN DETEMIR) 1 UNITS/0.01ML SC ×2 (10:16→21:49)
[2018-01-12] MEDS: ALLOPURINOL 100 MG TAB PO ×2 (10:16→21:49)
[2018-01-12] MEDS: PERCOCET 5MG/325MG TAB PO ×4 (10:42→21:49)
[2018-01-12 11:35] LABS: BEDSIDE GLUCOSE 300 MG/DL (83-110)
[2018-01-12] MEDS: FENOFIBRATE 48 MG TAB (TRICOR) PO (11:56)
[2018-01-12] MEDS: amLODIPine 5 MG TAB PO (15:11)
[2018-01-12] MEDS: WARFARIN SOD 5 MG TAB PO (17:29)
[2018-01-12 17:44] LABS: BEDSIDE GLUCOSE 255 MG/DL (83-110)
[2018-01-12 17:44] LABS: BEDSIDE GLUCOSE 246 MG/DL (83-110)
[2018-01-12 17:44] LABS: BEDSIDE GLUCOSE 56 MG/DL (83-110)
[2018-01-12 17:44] LABS: BEDSIDE GLUCOSE 59 MG/DL (83-110)
[2018-01-13] MEDS: PERCOCET 5MG/325MG TAB PO ×3 (02:09→20:55)
[2018-01-13 03:22] LABS: BEDSIDE GLUCOSE 271 MG/DL (83-110)
[2018-01-13 03:25] LABS: BEDSIDE GLUCOSE 257 MG/DL (83-110)
[2018-01-13] MEDS: LEVOTHYROXINE 100MCG TABLET (0.1MG) PO (05:45)
[2018-01-13 07:26] LABS: HEMATOCRIT 27.7 % (42.0-52.0); HEMOGLOBIN 9.2 g/dl (13.5-17.5); MEAN CORPUSCULAR HEMOGLOBIN 29.7 pg (27.0-33.0); MEAN CORPUSCULAR HGB CONC 33.2 g/dl (32.0-36.5); MEAN CORPUSCULAR VOLUME 89.4 fl (80.0-96.0); PLATELET COUNT, AUTOMATED 109 10^3/uL (150-450); RED CELL DISTRIBUTION WIDTH 16.3 % (11.5-14.5); WHITE BLOOD COUNT 8.4 10^3/uL (4.0-10.0)
[2018-01-13 07:33] LABS: INR 1.34; PROTHROMBIN TIME 16.7 SECONDS (12.1-14.4)
[2018-01-13 07:58] LABS: ANION GAP 9 MEQ/L (8-16); BLOOD UREA NITROGEN 26 MG/DL (7-18); CALCIUM LEVEL 7.8 MG/DL (8.8-10.2); CARBON DIOXIDE LEVEL 23 MEQ/L (21-32); CHLORIDE LEVEL 102 MEQ/L (98-107); CREATININE FOR GFR 2.11 MG/DL (0.70-1.30); GLOMERULAR FILTRATION RATE 32.6 (>42); GLUCOSE, FASTING 209 MG/DL (70-100); MAGNESIUM LEVEL 2.6 MG/DL (1.8-2.4); POTASSIUM SERUM 4.7 MEQ/L (3.5-5.1); SODIUM LEVEL 134 MEQ/L (136-145)
[2018-01-13] MEDS: HumaLOG INSULIN (NovoLOG) PER UNIT SC ×4 (08:06→20:50)
[2018-01-13] MEDS: SPIRONOLACTONE 25 MG TAB PO (09:59)
[2018-01-13] MEDS: FUROSEMIDE 80 MG TAB PO ×2 (10:00→20:55)
[2018-01-13] MEDS: SIMVASTATIN 40 MG TAB PO (10:00)
[2018-01-13] MEDS: ALLOPURINOL 100 MG TAB PO ×2 (10:01→20:55)
[2018-01-13] MEDS: FENOFIBRATE 48 MG TAB (TRICOR) PO (10:01)
[2018-01-13] MEDS: amLODIPine 5 MG TAB PO (10:02)
[2018-01-13] MEDS: MIRALAX *UNIT DOSE* 17GM PACKET PO (10:03)
[2018-01-13] MEDS: SENOKOT S TAB PO ×2 (10:03→20:55)
[2018-01-13] MEDS: MOM 30ML SUSPENSION UDC PO (10:03)
[2018-01-13] MEDS: LEVEMIR (INSULIN DETEMIR) 1 UNITS/0.01ML SC ×2 (10:04→20:54)
[2018-01-13 12:30] LABS: BEDSIDE GLUCOSE 253 MG/DL (83-110)
[2018-01-13 17:12] LABS: BEDSIDE GLUCOSE 198 MG/DL (83-110)
[2018-01-13 17:16] LABS: BEDSIDE GLUCOSE 189 MG/DL (83-110)
[2018-01-13] MEDS: WARFARIN SOD 5 MG TAB PO (18:09)
[2018-01-13 20:17] LABS: BEDSIDE GLUCOSE 236 MG/DL (83-110)
[2018-01-14] MEDS: LEVOTHYROXINE 100MCG TABLET (0.1MG) PO (06:41)
[2018-01-14] MEDS: PERCOCET 5MG/325MG TAB PO (06:42)
[2018-01-14] MEDS ORDERED: WARFARIN SOD 5 MG TAB PO (06:45)
[2018-01-14 07:39] LABS: HEMOGLOBIN 8.4 g/dl (13.5-17.5); MEAN CORPUSCULAR HEMOGLOBIN 30.2 pg (27.0-33.0); MEAN CORPUSCULAR HGB CONC 33.6 g/dl (32.0-36.5); MEAN CORPUSCULAR VOLUME 89.9 fl (80.0-96.0); PLATELET COUNT, AUTOMATED 105 10^3/uL (150-450); RED BLOOD COUNT 2.78 10^6/uL (4.30-6.10); RED CELL DISTRIBUTION WIDTH 15.9 % (11.5-14.5); WHITE BLOOD COUNT 7.3 10^3/uL (4.0-10.0)
[2018-01-14 07:54] LABS: INR 1.53; PROTHROMBIN TIME 18.6 SECONDS (12.1-14.4)
[2018-01-14 08:00] LABS: ANION GAP 7 MEQ/L (8-16); BLOOD UREA NITROGEN 30 MG/DL (7-18); CALCIUM LEVEL 7.6 MG/DL (8.8-10.2); CARBON DIOXIDE LEVEL 24 MEQ/L (21-32); CHLORIDE LEVEL 100 MEQ/L (98-107); GLOMERULAR FILTRATION RATE 31.1 (>42); GLUCOSE, FASTING 179 MG/DL (70-100); MAGNESIUM LEVEL 2.6 MG/DL (1.8-2.4); POTASSIUM SERUM 4.2 MEQ/L (3.5-5.1); SODIUM LEVEL 131 MEQ/L (136-145)
[2018-01-14] MEDS: HumaLOG INSULIN (NovoLOG) PER UNIT SC ×4 (08:26→20:33)
[2018-01-14] MEDS: MOM 30ML SUSPENSION UDC PO (08:27)
[2018-01-14] MEDS: MIRALAX *UNIT DOSE* 17GM PACKET PO (08:27)
[2018-01-14] MEDS: LEVEMIR (INSULIN DETEMIR) 1 UNITS/0.01ML SC ×2 (08:27→20:33)
[2018-01-14] MEDS: SPIRONOLACTONE 25 MG TAB PO (08:28)
[2018-01-14] MEDS: SIMVASTATIN 40 MG TAB PO (08:29)
[2018-01-14] MEDS: FENOFIBRATE 48 MG TAB (TRICOR) PO (08:29)
[2018-01-14] MEDS: SENOKOT S TAB PO ×2 (08:29→20:33)
[2018-01-14] MEDS: amLODIPine 5 MG TAB PO (08:30)
[2018-01-14] MEDS: ALLOPURINOL 100 MG TAB PO ×2 (08:30→20:33)
[2018-01-14] MEDS: FUROSEMIDE 80 MG TAB PO ×2 (08:31→20:33)
[2018-01-14] MEDS: ACETAMINOPHEN TAB 650MG DOSE (2X325MG) PO (14:58)
[2018-01-14 17:16] LABS: BEDSIDE GLUCOSE 266 MG/DL (83-110)
[2018-01-14] MEDS: WARFARIN SOD 5 MG TAB PO (18:07)
[2018-01-14 20:38] LABS: BEDSIDE GLUCOSE 235 MG/DL (83-110)
[2018-01-14 20:38] LABS: BEDSIDE GLUCOSE 243 MG/DL (83-110)
== END 2018-01-14 21:15 | DRG 470 ==
LOC: M OR 11:49 → M MS5PR 19:49
PROVIDERS: Orthopaedic Surgery
PROC: 0SRC0J9 Replacement of Right Knee Joint with Synthetic Substitute, Cemented, Open Approach (ICD-10-PCS; principal; 2018-01-11 16:00)
DX: M17.11 Unilateral primary osteoarthritis, right knee (principal); I12.9 Hypertensive chronic kidney disease with stage 1 through stage 4 chronic kidney disease, or unspecified chronic kidney disease; E11.22 Type 2 diabetes mellitus with diabetic chronic kidney disease; E78.00 Pure hypercholesterolemia, unspecified; E03.9 Hypothyroidism, unspecified; N18.3 Chronic kidney disease, stage 3 (moderate); Z79.899 Other long term (current) drug therapy; Z79.4 Long term (current) use of insulin

== ENCOUNTER 2018-01-14 21:15 | Inpatient (IN) | payer MEDICARE ==
[~2018-01-14 21:15] MED LIST: BISACODYL 10 MG SUPP PR; BISACODYL 5 MG TAB PO; DEXTROSE 50% 50 ML SYRINGE IV; GLUCAGON FOR INJ 1 MG VIAL (J1610) SC; GLUCOSE 4 GM CHEW TABLET PO; MOM 30ML SUSPENSION UDC PO
[2018-01-15] MEDS: ACETAMINOPHEN TAB 650MG DOSE (2X325MG) PO (01:15)
[2018-01-15] MEDS: LEVOTHYROXINE 100MCG TABLET (0.1MG) PO (05:46)
[2018-01-15 06:33] LABS: BEDSIDE GLUCOSE 177 MG/DL (83-110)
[2018-01-15] MEDS: METOPROLOL TART 12.5 MG PER 1/2 TAB PO ×2 (06:39→21:00)
[2018-01-15 07:21] LABS: IONIZED CALCIUM 4.3 MG/DL (4.5-5.3)
[2018-01-15 07:42] LABS: HEMATOCRIT 26.4 % (42.0-52.0); MEAN CORPUSCULAR HGB CONC 34.1 g/dl (32.0-36.5); PLATELET COUNT, AUTOMATED 124 10^3/uL (150-450); RED CELL DISTRIBUTION WIDTH 15.9 % (11.5-14.5); WHITE BLOOD COUNT 6.3 10^3/uL (4.0-10.0)
[2018-01-15 08:09] LABS: ANION GAP 10 MEQ/L (8-16); BLOOD UREA NITROGEN 33 MG/DL (7-18); CARBON DIOXIDE LEVEL 25 MEQ/L (21-32); CHLORIDE LEVEL 100 MEQ/L (98-107); CREATININE FOR GFR 2.16 MG/DL (0.70-1.30); GLOMERULAR FILTRATION RATE 31.7 (>42); GLUCOSE, FASTING 178 MG/DL (70-100); MAGNESIUM LEVEL 2.7 MG/DL (1.8-2.4); POTASSIUM SERUM 4.2 MEQ/L (3.5-5.1); SODIUM LEVEL 135 MEQ/L (136-145)
[2018-01-15 08:19] LABS: INR 2.12; PROTHROMBIN TIME 24.2 SECONDS (12.1-14.4)
[2018-01-15] MEDS: MIRALAX *UNIT DOSE* 17GM PACKET PO (08:37)
[2018-01-15] MEDS: PREVNAR 13 VACCINE SYRINGE (CPT CODE:90670) IM (08:38)
[2018-01-15] MEDS: INFLUENZA VIRUS VACCINE HIGH DOSE 0.5 ML SYRINGE (90662) IM (08:40)
[2018-01-15] MEDS: HumaLOG INSULIN (NovoLOG) PER UNIT SC ×4 (08:40→21:00)
[2018-01-15] MEDS: amLODIPine 5 MG TAB PO (08:41)
[2018-01-15] MEDS: SIMVASTATIN 40 MG TAB PO (08:41)
[2018-01-15] MEDS: ALLOPURINOL 100 MG TAB PO ×2 (08:41→21:00)
[2018-01-15] MEDS: FENOFIBRATE 48 MG TAB (TRICOR) PO (08:42)
[2018-01-15] MEDS: SENOKOT S TAB PO ×2 (08:42→21:00)
[2018-01-15] MEDS: LEVEMIR (INSULIN DETEMIR) 1 UNITS/0.01ML SC (08:42)
[2018-01-15] MEDS: SPIRONOLACTONE 25 MG TAB PO (08:42)
[2018-01-15] MEDS: FUROSEMIDE 80 MG TAB PO ×2 (09:00→17:00)
[2018-01-15 09:21] LABS: CK-MB VALUE MASS < 1.0 NG/ML (<3.6); CPK CREATINE PHOSPHOKINASE 132 U/L (39-308); MB/CK RELATIVE INDEX 0.76 (< OR =4); TROPONIN I < 0.02 NG/ML (< 0.10)
[2018-01-16] MEDS: LEVOTHYROXINE 100MCG TABLET (0.1MG) PO (06:00)
[2018-01-16] MEDS: HumaLOG INSULIN (NovoLOG) PER UNIT SC ×4 (07:30→21:00)
[2018-01-16] MEDS: FENOFIBRATE 48 MG TAB (TRICOR) PO (09:00)
[2018-01-16] MEDS: ALLOPURINOL 100 MG TAB PO ×2 (09:00→21:00)
[2018-01-16] MEDS: SIMVASTATIN 40 MG TAB PO (09:00)
[2018-01-16] MEDS: SPIRONOLACTONE 25 MG TAB PO (09:00)
[2018-01-16] MEDS: MIRALAX *UNIT DOSE* 17GM PACKET PO (09:00)
[2018-01-16] MEDS: METOPROLOL TART 12.5 MG PER 1/2 TAB PO ×2 (09:00→21:00)
[2018-01-16] MEDS: SENOKOT S TAB PO ×2 (09:00→21:00)
[2018-01-16] MEDS: FUROSEMIDE 80 MG TAB PO ×2 (09:00→17:00)
[2018-01-17] MEDS: LEVOTHYROXINE 100MCG TABLET (0.1MG) PO (06:00)
[2018-01-17] MEDS: HumaLOG INSULIN (NovoLOG) PER UNIT SC ×4 (07:30→22:24)
[2018-01-17] MEDS: FUROSEMIDE 80 MG TAB PO ×2 (09:00→17:00)
[2018-01-17] MEDS: METOPROLOL TART 12.5 MG PER 1/2 TAB PO ×2 (09:00→20:52)
[2018-01-17] MEDS: FENOFIBRATE 48 MG TAB (TRICOR) PO (09:00)
[2018-01-17] MEDS: SENOKOT S TAB PO ×2 (09:00→20:52)
[2018-01-17] MEDS: SPIRONOLACTONE 25 MG TAB PO (09:00)
[2018-01-17] MEDS: ALLOPURINOL 100 MG TAB PO ×2 (09:00→20:53)
[2018-01-17] MEDS: MIRALAX *UNIT DOSE* 17GM PACKET PO (09:00)
[2018-01-17] MEDS: SIMVASTATIN 40 MG TAB PO (09:00)
[2018-01-17] MEDS: WARFARIN SOD 2.5 MG TAB PO (19:00)
[2018-01-17] MEDS: PERCOCET 5MG/325MG TAB PO (20:53)
[2018-01-17] MEDS: LEVEMIR (INSULIN DETEMIR) 1 UNITS/0.01ML SC (20:53)
[2018-01-18] MEDS: LEVOTHYROXINE 100MCG TABLET (0.1MG) PO (06:10)
[2018-01-18 06:36] LABS: BEDSIDE GLUCOSE 164 MG/DL (83-110)
[2018-01-18 07:29] LABS: INR 2.23; PROTHROMBIN TIME 25.1 SECONDS (12.1-14.4)
[2018-01-18] MEDS: METOPROLOL TART 12.5 MG PER 1/2 TAB PO ×2 (08:36→20:49)
[2018-01-18] MEDS: SPIRONOLACTONE 25 MG TAB PO (08:36)
[2018-01-18] MEDS: HumaLOG INSULIN (NovoLOG) PER UNIT SC ×4 (08:37→21:00)
[2018-01-18] MEDS: SENOKOT S TAB PO ×2 (08:37→20:48)
[2018-01-18] MEDS: FUROSEMIDE 80 MG TAB PO ×2 (08:37→17:11)
[2018-01-18] MEDS: FENOFIBRATE 48 MG TAB (TRICOR) PO (08:37)
[2018-01-18] MEDS: SIMVASTATIN 40 MG TAB PO (08:37)
[2018-01-18] MEDS: ALLOPURINOL 100 MG TAB PO ×2 (08:37→20:49)
[2018-01-18] MEDS: MIRALAX *UNIT DOSE* 17GM PACKET PO (08:38)
[2018-01-18] MEDS: LEVEMIR (INSULIN DETEMIR) 1 UNITS/0.01ML SC ×2 (08:38→20:50)
[2018-01-18 11:24] LABS: BEDSIDE GLUCOSE 325 MG/DL (83-110)
[2018-01-18 16:21] LABS: BEDSIDE GLUCOSE 324 MG/DL (83-110)
[2018-01-18] MEDS ORDERED: WARFARIN SOD 2.5 MG TAB PO (17:00)
[2018-01-18] MEDS: WARFARIN SOD 2.5 MG TAB PO (17:11)
[2018-01-18 19:47] LABS: BEDSIDE GLUCOSE 238 MG/DL (83-110)
[2018-01-18] MEDS: PERCOCET 5MG/325MG TAB PO (20:49)
[2018-01-19] MEDS: LEVOTHYROXINE 100MCG TABLET (0.1MG) PO (06:10)
[2018-01-19 06:13] LABS: BEDSIDE GLUCOSE 170 MG/DL (83-110)
[2018-01-19] MEDS: MIRALAX *UNIT DOSE* 17GM PACKET PO (09:00)
[2018-01-19] MEDS: FUROSEMIDE 80 MG TAB PO ×2 (09:06→17:11)
[2018-01-19] MEDS: SPIRONOLACTONE 25 MG TAB PO (09:06)
[2018-01-19] MEDS: ALLOPURINOL 100 MG TAB PO ×2 (09:06→20:51)
[2018-01-19] MEDS: SENOKOT S TAB PO ×2 (09:06→20:51)
[2018-01-19] MEDS: METOPROLOL TART 12.5 MG PER 1/2 TAB PO ×2 (09:07→20:51)
[2018-01-19] MEDS: SIMVASTATIN 40 MG TAB PO (09:07)
[2018-01-19] MEDS: LEVEMIR (INSULIN DETEMIR) 1 UNITS/0.01ML SC ×2 (09:08→20:52)
[2018-01-19] MEDS: HumaLOG INSULIN (NovoLOG) PER UNIT SC ×4 (09:08→20:51)
[2018-01-19] MEDS: FENOFIBRATE 48 MG TAB (TRICOR) PO (09:08)
[2018-01-19 12:16] LABS: BEDSIDE GLUCOSE 246 MG/DL (83-110)
[2018-01-19 16:59] LABS: BEDSIDE GLUCOSE 241 MG/DL (83-110)
[2018-01-19] MEDS: WARFARIN SOD 2.5 MG TAB PO (17:11)
[2018-01-19 20:43] LABS: BEDSIDE GLUCOSE 235 MG/DL (83-110)
[2018-01-20] MEDS: ACETAMINOPHEN TAB 650MG DOSE (2X325MG) PO (00:33)
[2018-01-20] MEDS: LEVOTHYROXINE 100MCG TABLET (0.1MG) PO (06:28)
[2018-01-20 06:36] LABS: BEDSIDE GLUCOSE 182 MG/DL (83-110)
[2018-01-20 07:05] LABS: HEMATOCRIT 25.9 % (42.0-52.0); HEMOGLOBIN 8.5 g/dl (13.5-17.5); MEAN CORPUSCULAR HEMOGLOBIN 29.8 pg (27.0-33.0); MEAN CORPUSCULAR HGB CONC 32.8 g/dl (32.0-36.5); MEAN CORPUSCULAR VOLUME 90.9 fl (80.0-96.0); PLATELET COUNT, AUTOMATED 169 10^3/uL (150-450); RED BLOOD COUNT 2.85 10^6/uL (4.30-6.10); RED CELL DISTRIBUTION WIDTH 16.5 % (11.5-14.5); WHITE BLOOD COUNT 7.2 10^3/uL (4.0-10.0)
[2018-01-20 07:13] LABS: INR 2.55
[2018-01-20 07:38] LABS: ANION GAP 11 MEQ/L (8-16); BLOOD UREA NITROGEN 46 MG/DL (7-18); CALCIUM LEVEL 8.1 MG/DL (8.8-10.2); CARBON DIOXIDE LEVEL 24 MEQ/L (21-32); CHLORIDE LEVEL 102 MEQ/L (98-107); CREATININE FOR GFR 2.18 MG/DL (0.70-1.30); GLOMERULAR FILTRATION RATE 31.4 (>42); GLUCOSE, FASTING 169 MG/DL (70-100); SODIUM LEVEL 137 MEQ/L (136-145)
[2018-01-20] MEDS: MIRALAX *UNIT DOSE* 17GM PACKET PO (08:55)
[2018-01-20] MEDS: SPIRONOLACTONE 25 MG TAB PO (08:58)
[2018-01-20] MEDS: FENOFIBRATE 48 MG TAB (TRICOR) PO (08:58)
[2018-01-20] MEDS: SIMVASTATIN 40 MG TAB PO (08:58)
[2018-01-20] MEDS: SENOKOT S TAB PO ×2 (08:58→21:29)
[2018-01-20] MEDS: PERCOCET 5MG/325MG TAB PO (08:58)
[2018-01-20] MEDS: ALLOPURINOL 100 MG TAB PO ×2 (08:58→21:29)
[2018-01-20] MEDS: FUROSEMIDE 80 MG TAB PO ×2 (08:59→18:06)
[2018-01-20] MEDS: METOPROLOL TART 12.5 MG PER 1/2 TAB PO (09:00)
[2018-01-20] MEDS: HumaLOG INSULIN (NovoLOG) PER UNIT SC ×4 (09:00→21:30)
[2018-01-20] MEDS: LEVEMIR (INSULIN DETEMIR) 1 UNITS/0.01ML SC ×2 (09:01→21:30)
[2018-01-20 12:18] LABS: BEDSIDE GLUCOSE 252 MG/DL (83-110)
[2018-01-20] MEDS ORDERED: SENOKOT S TAB PO (15:15)
[2018-01-20 17:32] LABS: BEDSIDE GLUCOSE 249 MG/DL (83-110)
[2018-01-20] MEDS: WARFARIN SOD 2.5 MG TAB PO (18:06)
[2018-01-20 19:46] LABS: BEDSIDE GLUCOSE 237 MG/DL (83-110)
[2018-01-20] MEDS: METOPROLOL TART 25 MG TABLET PO (21:29)
[2018-01-21 05:29] LABS: BEDSIDE GLUCOSE 171 MG/DL (83-110)
[2018-01-21] MEDS: LEVOTHYROXINE 100MCG TABLET (0.1MG) PO (06:15)
[2018-01-21 06:48] LABS: INR 2.71; PROTHROMBIN TIME 29.3 SECONDS (12.1-14.4)
[2018-01-21] MEDS: SIMVASTATIN 40 MG TAB PO (08:33)
[2018-01-21] MEDS: FENOFIBRATE 48 MG TAB (TRICOR) PO (08:33)
[2018-01-21] MEDS: FUROSEMIDE 80 MG TAB PO ×2 (08:33→17:20)
[2018-01-21] MEDS: PERCOCET 5MG/325MG TAB PO (08:33)
[2018-01-21] MEDS: SPIRONOLACTONE 25 MG TAB PO (08:33)
[2018-01-21] MEDS: ALLOPURINOL 100 MG TAB PO ×2 (08:33→22:29)
[2018-01-21] MEDS: HumaLOG INSULIN (NovoLOG) PER UNIT SC ×4 (08:34→22:32)
[2018-01-21] MEDS: LEVEMIR (INSULIN DETEMIR) 1 UNITS/0.01ML SC ×2 (08:34→22:31)
[2018-01-21] MEDS: SENOKOT S TAB PO ×2 (08:34→21:00)
[2018-01-21] MEDS: METOPROLOL TART 25 MG TABLET PO ×2 (08:34→22:31)
[2018-01-21] MEDS: MIRALAX *UNIT DOSE* 17GM PACKET PO (08:35)
[2018-01-21 12:13] LABS: BEDSIDE GLUCOSE 237 MG/DL (83-110)
[2018-01-21 17:10] LABS: BEDSIDE GLUCOSE 183 MG/DL (83-110)
[2018-01-21] MEDS: CARBAMIDE PEROXIDE 6.5% OTIC SOLN 15ML AD (17:21)
[2018-01-21] MEDS: WARFARIN SOD 2.5 MG TAB PO (17:21)
[2018-01-21 21:08] LABS: BEDSIDE GLUCOSE 290 MG/DL (83-110)
[2018-01-22] MEDS: LEVOTHYROXINE 100MCG TABLET (0.1MG) PO (05:36)
[2018-01-22 05:37] LABS: BEDSIDE GLUCOSE 181 MG/DL (83-110)
[2018-01-22 05:56] LABS: INR 2.72; PROTHROMBIN TIME 29.4 SECONDS (12.1-14.4)
[2018-01-22] MEDS: ACETAMINOPHEN TAB 650MG DOSE (2X325MG) PO ×2 (06:50→08:28)
[2018-01-22] MEDS: HumaLOG INSULIN (NovoLOG) PER UNIT SC ×2 (08:24→12:29)
[2018-01-22] MEDS: FUROSEMIDE 80 MG TAB PO (08:25)
[2018-01-22] MEDS: FENOFIBRATE 48 MG TAB (TRICOR) PO (08:25)
[2018-01-22] MEDS: LEVEMIR (INSULIN DETEMIR) 1 UNITS/0.01ML SC (08:26)
[2018-01-22] MEDS: SPIRONOLACTONE 25 MG TAB PO (08:26)
[2018-01-22] MEDS: ALLOPURINOL 100 MG TAB PO (08:26)
[2018-01-22] MEDS: SIMVASTATIN 40 MG TAB PO (08:26)
[2018-01-22] MEDS: MIRALAX *UNIT DOSE* 17GM PACKET PO (08:27)
[2018-01-22] MEDS: SENOKOT S TAB PO (08:27)
[2018-01-22] MEDS: METOPROLOL TART 25 MG TABLET PO (08:27)
[2018-01-22 11:48] LABS: BEDSIDE GLUCOSE 232 MG/DL (83-110)
[2018-01-22] MEDS: PERCOCET 5MG/325MG TAB PO (14:46)
== END 2018-01-22 15:06 | disposition home health service (06) | DRG 560 ==
LOC: M PM&R 21:15
PROVIDERS: Physical Medicine & Rehabilitation
DX: Z47.1 Aftercare following joint replacement surgery (principal); D62 Acute posthemorrhagic anemia; E87.1 Hypo-osmolality and hyponatremia; Z96.651 Presence of right artificial knee joint; I13.10 Hypertensive heart and chronic kidney disease without heart failure, with stage 1 through stage 4 chronic kidney disease, or unspecified chronic kidney disease; E11.22 Type 2 diabetes mellitus with diabetic chronic kidney disease; N18.9 Chronic kidney disease, unspecified; E78.00 Pure hypercholesterolemia, unspecified; E03.9 Hypothyroidism, unspecified; M10.9 Gout, unspecified; E83.51 Hypocalcemia; R26.89 Other abnormalities of gait and mobility; I48.0 Paroxysmal atrial fibrillation; E83.41 Hypermagnesemia; K59.00 Constipation, unspecified; D69.6 Thrombocytopenia, unspecified; Z79.4 Long term (current) use of insulin; Z79.01 Long term (current) use of anticoagulants; Z79.899 Other long term (current) drug therapy

== ENCOUNTER 2018-01-15 09:47 | Inpatient (IN) | payer MEDICARE ==
[2018-01-15] MEDS ORDERED: PERCOCET 5MG/325MG TAB PO (10:00)
[2018-01-15] MEDS ORDERED: GLUCOSE 4 GM CHEW TABLET PO (10:00)
[2018-01-15] MEDS ORDERED: DEXTROSE 50% 50 ML SYRINGE IV (10:00)
[2018-01-15] MEDS ORDERED: GLUCAGON FOR INJ 1 MG VIAL (J1610) SC (10:00)
[2018-01-15] MEDS ORDERED: MOM 30ML SUSPENSION UDC PO (10:00)
[2018-01-15] MEDS ORDERED: BISACODYL 10 MG SUPP PR (10:00)
[2018-01-15 10:45] LABS: CK-MB VALUE MASS < 1.0 NG/ML (<3.6); CPK CREATINE PHOSPHOKINASE 122 U/L (39-308); MB/CK RELATIVE INDEX 0.82 (< OR =4); TROPONIN I 0.02 NG/ML (< 0.10)
[2018-01-15 11:08] LABS: THYROID STIMULATING HORMONE 0.821 uIU/ML (0.358-3.740)
[2018-01-15 11:08] LABS: FREE T4 1.26 NG/DL (0.76-1.46)
[2018-01-15] MEDS: FUROSEMIDE 80 MG TAB PO ×2 (11:12→17:58)
[2018-01-15 11:19] LABS: BEDSIDE GLUCOSE 284 MG/DL (83-110)
[2018-01-15] MEDS: HumaLOG INSULIN (NovoLOG) PER UNIT SC ×3 (12:40→20:26)
[2018-01-15] MEDS: PERCOCET 5MG/325MG TAB PO ×2 (12:40→20:27)
[2018-01-15] MEDS: LACTULOSE 20 GM/30 ML SYRUP UD PO ×3 (14:10→23:21)
[2018-01-15 16:23] LABS: CK-MB VALUE MASS < 1.0 NG/ML (<3.6); CPK CREATINE PHOSPHOKINASE 113 U/L (39-308); MB/CK RELATIVE INDEX 0.88 (< OR =4); TROPONIN I 0.02 NG/ML (< 0.10)
[2018-01-15 17:32] LABS: BEDSIDE GLUCOSE 204 MG/DL (83-110)
[2018-01-15] MEDS: WARFARIN SOD 3 MG TAB PO (17:58)
[2018-01-15 20:13] LABS: BEDSIDE GLUCOSE 153 MG/DL (83-110)
[2018-01-15] MEDS: LEVEMIR (INSULIN DETEMIR) 1 UNITS/0.01ML SC (20:26)
[2018-01-15] MEDS: ALLOPURINOL 100 MG TAB PO (20:27)
[2018-01-15] MEDS: SENOKOT S TAB PO (20:27)
[2018-01-15] MEDS: METOPROLOL TART 12.5 MG PER 1/2 TAB PO (20:27)
[2018-01-15 22:23] LABS: CK-MB VALUE MASS < 1.0 NG/ML (<3.6); CPK CREATINE PHOSPHOKINASE 157 U/L (39-308); MB/CK RELATIVE INDEX 0.64 (< OR =4); TROPONIN I 0.02 NG/ML (< 0.10)
[2018-01-16] MEDS: LEVOTHYROXINE 100MCG TABLET (0.1MG) PO (05:38)
[2018-01-16 05:39] LABS: BASO % 0.2 % (0.0-1.0); EOS # 0.2 10^3/uL (0.0-0.50); EOS % 2.9 % (0.0-3.0); HEMATOCRIT 24.6 % (42.0-52.0); HEMOGLOBIN 8.3 g/dl (13.5-17.5); IMMATURE GRANULOCYTE % 0.5 % (0-3.0); LYMPH # 1.7 10^3/uL (1.5-4.5); LYMPH % 31.7 % (24.0-44.0); MEAN CORPUSCULAR HEMOGLOBIN 30.1 pg (27.0-33.0); MEAN CORPUSCULAR HGB CONC 33.7 g/dl (32.0-36.5); MEAN CORPUSCULAR VOLUME 89.1 fl (80.0-96.0); MONO # 0.6 10^3/uL (0.0-0.8); NEUTROPHILS # 2.9 10^3/uL (1.8-7.7); NEUTROPHILS % 53.7 % (36.0-66.0); PLATELET COUNT, AUTOMATED 129 10^3/uL (150-450); RED BLOOD COUNT 2.76 10^6/uL (4.30-6.10); RED CELL DISTRIBUTION WIDTH 15.9 % (11.5-14.5); WHITE BLOOD COUNT 5.5 10^3/uL (4.0-10.0)
[2018-01-16 06:28] LABS: ALBUMIN 2.2 GM/DL (3.2-5.2); ALBUMIN/GLOBULIN RATIO 0.58 (1.00-1.93); ALKALINE PHOSPHATASE 80 U/L (45-117); ALT/SGPT 33 U/L (12-78); ANION GAP 10 MEQ/L (8-16); AST/SGOT 69 U/L (7-37); BILIRUBIN,TOTAL 0.9 MG/DL (0.2-1.0); BLOOD UREA NITROGEN 36 MG/DL (7-18); CALCIUM LEVEL 7.8 MG/DL (8.8-10.2); CARBON DIOXIDE LEVEL 26 MEQ/L (21-32); CHLORIDE LEVEL 98 MEQ/L (98-107); CREATININE FOR GFR 2.22 MG/DL (0.70-1.30); GLOMERULAR FILTRATION RATE 30.7 (>42); GLUCOSE, FASTING 193 MG/DL (70-100); MAGNESIUM LEVEL 2.8 MG/DL (1.8-2.4); POTASSIUM SERUM 3.9 MEQ/L (3.5-5.1); SODIUM LEVEL 134 MEQ/L (136-145)
[2018-01-16] MEDS: HumaLOG INSULIN (NovoLOG) PER UNIT SC ×4 (07:30→21:25)
[2018-01-16 08:21] LABS: INR 2.55; PROTHROMBIN TIME 27.9 SECONDS (12.1-14.4)
[2018-01-16] MEDS: LEVEMIR (INSULIN DETEMIR) 1 UNITS/0.01ML SC ×2 (09:00→21:25)
[2018-01-16] MEDS: SENOKOT S TAB PO ×2 (09:00→21:26)
[2018-01-16] MEDS: MIRALAX *UNIT DOSE* 17GM PACKET PO (09:00)
[2018-01-16] MEDS: FENOFIBRATE 48 MG TAB (TRICOR) PO (09:40)
[2018-01-16] MEDS: FUROSEMIDE 80 MG TAB PO ×2 (09:40→18:30)
[2018-01-16] MEDS: SPIRONOLACTONE 25 MG TAB PO (09:40)
[2018-01-16] MEDS: SIMVASTATIN 40 MG TAB PO (09:40)
[2018-01-16] MEDS: ALLOPURINOL 100 MG TAB PO ×2 (09:40→21:26)
[2018-01-16] MEDS: METOPROLOL TART 12.5 MG PER 1/2 TAB PO ×2 (09:41→21:26)
[2018-01-16 11:19] LABS: BEDSIDE GLUCOSE 251 MG/DL (83-110)
[2018-01-16 17:12] LABS: BEDSIDE GLUCOSE 266 MG/DL (83-110)
[2018-01-16] MEDS: WARFARIN SOD 2 MG TAB PO (18:31)
[2018-01-16 20:50] LABS: BEDSIDE GLUCOSE 362 MG/DL (83-110)
[2018-01-17 05:30] LABS: BASO % 0.4 % (0.0-1.0); EOS # 0.2 10^3/uL (0.0-0.50); EOS % 2.3 % (0.0-3.0); HEMATOCRIT 29.3 % (42.0-52.0); HEMOGLOBIN 9.9 g/dl (13.5-17.5); IMMATURE GRANULOCYTE % 0.8 % (0-3.0); LYMPH # 3.2 10^3/uL (1.5-4.5); MEAN CORPUSCULAR HEMOGLOBIN 30.1 pg (27.0-33.0); MEAN CORPUSCULAR HGB CONC 33.8 g/dl (32.0-36.5); MEAN CORPUSCULAR VOLUME 89.1 fl (80.0-96.0); MONO # 0.8 10^3/uL (0.0-0.8); NEUTROPHILS # 4.3 10^3/uL (1.8-7.7); NEUTROPHILS % 50.5 % (36.0-66.0); PLATELET COUNT, AUTOMATED 170 10^3/uL (150-450); RED BLOOD COUNT 3.29 10^6/uL (4.30-6.10); RED CELL DISTRIBUTION WIDTH 16.2 % (11.5-14.5); WHITE BLOOD COUNT 8.6 10^3/uL (4.0-10.0)
[2018-01-17] MEDS: LEVOTHYROXINE 100MCG TABLET (0.1MG) PO (05:30)
[2018-01-17 06:04] LABS: ALBUMIN 2.5 GM/DL (3.2-5.2); ALBUMIN/GLOBULIN RATIO 0.44 (1.00-1.93); ALKALINE PHOSPHATASE 88 U/L (45-117); ALT/SGPT 35 U/L (12-78); ANION GAP 12 MEQ/L (8-16); AST/SGOT 51 U/L (7-37); BILIRUBIN,TOTAL 1.2 MG/DL (0.2-1.0); BLOOD UREA NITROGEN 39 MG/DL (7-18); CALCIUM LEVEL 8.7 MG/DL (8.8-10.2); CARBON DIOXIDE LEVEL 23 MEQ/L (21-32); CHLORIDE LEVEL 97 MEQ/L (98-107); CREATININE FOR GFR 2.38 MG/DL (0.70-1.30); GLOMERULAR FILTRATION RATE 28.4 (>42); GLUCOSE, FASTING 167 MG/DL (70-100); MAGNESIUM LEVEL 2.8 MG/DL (1.8-2.4); POTASSIUM SERUM 3.8 MEQ/L (3.5-5.1); SODIUM LEVEL 132 MEQ/L (136-145); TOTAL PROTEIN 8.2 GM/DL (6.4-8.2)
[2018-01-17] MEDS: METOPROLOL TART 12.5 MG PER 1/2 TAB PO (08:00)
[2018-01-17] MEDS: SENOKOT S TAB PO (08:00)
[2018-01-17] MEDS: SIMVASTATIN 40 MG TAB PO (08:00)
[2018-01-17] MEDS: SPIRONOLACTONE 25 MG TAB PO (08:00)
[2018-01-17] MEDS: FENOFIBRATE 48 MG TAB (TRICOR) PO (08:01)
[2018-01-17] MEDS: ALLOPURINOL 100 MG TAB PO (08:01)
[2018-01-17] MEDS: FUROSEMIDE 80 MG TAB PO (08:01)
[2018-01-17] MEDS: HumaLOG INSULIN (NovoLOG) PER UNIT SC ×2 (08:01→11:45)
[2018-01-17] MEDS: MIRALAX *UNIT DOSE* 17GM PACKET PO (08:02)
[2018-01-17] MEDS: LEVEMIR (INSULIN DETEMIR) 1 UNITS/0.01ML SC (08:02)
[2018-01-17 08:29] LABS: INR 2.61; PROTHROMBIN TIME 28.5 SECONDS (12.1-14.4)
[2018-01-17 11:39] LABS: BEDSIDE GLUCOSE 249 MG/DL (83-110)
[2018-01-17 20:48] LABS: BEDSIDE GLUCOSE 331 MG/DL (83-110)
[2018-01-17 22:15] LABS: BEDSIDE GLUCOSE 306 MG/DL (83-110)
== END 2018-01-17 15:31 | DRG 310 ==
LOC: M PCU 09:47
DX: I48.91 Unspecified atrial fibrillation (principal); I12.9 Hypertensive chronic kidney disease with stage 1 through stage 4 chronic kidney disease, or unspecified chronic kidney disease; E11.22 Type 2 diabetes mellitus with diabetic chronic kidney disease; E78.5 Hyperlipidemia, unspecified; N18.3 Chronic kidney disease, stage 3 (moderate); E03.9 Hypothyroidism, unspecified; Z79.4 Long term (current) use of insulin; Z96.651 Presence of right artificial knee joint; Z79.01 Long term (current) use of anticoagulants

== ENCOUNTER → 2018-01-25 | Outpatient (REF) | payer MEDICARE ==
[2018-01-25 15:41] LABS: HEMATOCRIT 29.3 % (42.0-52.0); HEMOGLOBIN 9.6 g/dl (13.5-17.5); MEAN CORPUSCULAR HGB CONC 32.8 g/dl (32.0-36.5); MEAN CORPUSCULAR VOLUME 91.6 fl (80.0-96.0); PLATELET COUNT, AUTOMATED 233 10^3/uL (150-450); RED CELL DISTRIBUTION WIDTH 17.2 % (11.5-14.5); WHITE BLOOD COUNT 8.7 10^3/uL (4.0-10.0)
== END ==
LOC: M LABDRAW1 12:40
DX: Z96.651 Presence of right artificial knee joint (principal)
CPT/HCPCS: 85027

== ENCOUNTER → 2018-02-07 | Outpatient (REF) | payer MEDICARE ==
[2018-02-07 12:47] LABS: HEMOGLOBIN 10.5 g/dl (13.5-17.5); MEAN CORPUSCULAR HEMOGLOBIN 30.1 pg (27.0-33.0); MEAN CORPUSCULAR HGB CONC 32.8 g/dl (32.0-36.5); MEAN CORPUSCULAR VOLUME 91.7 fl (80.0-96.0); PLATELET COUNT, AUTOMATED 218 10^3/uL (150-450); RED BLOOD COUNT 3.49 10^6/uL (4.30-6.10); WHITE BLOOD COUNT 6.2 10^3/uL (4.0-10.0)
[2018-02-07 12:57] LABS: INR 1.57
== END ==
LOC: M LAB REF 12:23
DX: D62 Acute posthemorrhagic anemia (principal); I48.91 Unspecified atrial fibrillation
CPT/HCPCS: 85610

== ENCOUNTER → 2018-02-14 | Outpatient (REF) | payer MEDICARE ==
[2018-02-14 12:52] LABS: HEMATOCRIT 32.4 % (42.0-52.0); HEMOGLOBIN 10.4 g/dl (13.5-17.5); MEAN CORPUSCULAR HEMOGLOBIN 30.1 pg (27.0-33.0); MEAN CORPUSCULAR HGB CONC 32.1 g/dl (32.0-36.5); MEAN CORPUSCULAR VOLUME 93.9 fl (80.0-96.0); PLATELET COUNT, AUTOMATED 189 10^3/uL (150-450); RED BLOOD COUNT 3.45 10^6/uL (4.30-6.10); RED CELL DISTRIBUTION WIDTH 16.8 % (11.5-14.5); WHITE BLOOD COUNT 7.6 10^3/uL (4.0-10.0)
[2018-02-14 13:01] LABS: INR 1.84; PROTHROMBIN TIME 21.6 SECONDS (12.1-14.4)
[2018-02-14 13:02] LABS: ANION GAP 9 MEQ/L (8-16); BLOOD UREA NITROGEN 31 MG/DL (7-18); CALCIUM LEVEL 8.7 MG/DL (8.8-10.2); CARBON DIOXIDE LEVEL 25 MEQ/L (21-32); CHLORIDE LEVEL 101 MEQ/L (98-107); CREATININE FOR GFR 2.19 MG/DL (0.70-1.30); GLOMERULAR FILTRATION RATE 31.2 (>42); GLUCOSE, FASTING 217 MG/DL (70-100); POTASSIUM SERUM 4.4 MEQ/L (3.5-5.1); SODIUM LEVEL 135 MEQ/L (136-145)
== END ==
LOC: M LAB REF 12:28
DX: I10 Essential (primary) hypertension (principal); D64.9 Anemia, unspecified; Z79.01 Long term (current) use of anticoagulants
CPT/HCPCS: 80048

== ENCOUNTER → 2018-09-25 | Outpatient (REF) | payer MEDICARE ==
[~2018-09-25] MED LIST changes: +ALLO100T PO; +AMLO5TAB6 PO; +AMOX500C PO; -BISACODYL 10 MG SUPP PR; -BISACODYL 5 MG TAB PO; +BYDU1INJ SC; +COUM2.5T17 PO; -DEXTROSE 50% 50 ML SYRINGE IV; +Docusate Sod/Senna PO; +FENO48TA2 PO; +GLIM4TAB PO; -GLUCAGON FOR INJ 1 MG VIAL (J1610) SC; -GLUCOSE 4 GM CHEW TABLET PO; +INSULADS SC; +INSULANT SC; +LASI80TA3 PO; +LEVO100T5 PO; +METO1TAB87 PO; +MILK120011 PO; -MOM 30ML SUSPENSION UDC PO; +PEG1POW PO; +PERC5TAB12 PO; +PERCOCET PO; +SIMV40TA2 PO; +SPIR-10 PO; +TYLE325T5 PO
== END ==
LOC: M WUC 10:47
PROVIDERS: ATTEND Physician Assistant
DX: S81.001A Unspecified open wound, right knee, initial encounter (principal)

== ENCOUNTER 2018-10-11 15:44 | Emergency (ER) | payer MEDICARE ==
[~2018-10-11] VITALS: Ht 172.7 cm; Wt 79.1 kg
[2018-10-11] MEDS ORDERED: KEFL500C17 PO (16:04)
[2018-10-11] MEDS ORDERED: LOPR1TAB6 PO (16:04)
[2018-10-11] MEDS ORDERED: CENT2OIN EXT (16:06)
[2018-10-11 16:46] LABS: BASO % 0.6 % (0.0-1.0); EOS # 0.2 10^3/uL (0.0-0.50); EOS % 2.7 % (0.0-3.0); HEMATOCRIT 33.4 % (42.0-52.0); HEMOGLOBIN 11.2 g/dl (13.5-17.5); LYMPH # 2.5 10^3/uL (1.5-4.5); LYMPH % 35.7 % (24.0-44.0); MEAN CORPUSCULAR HEMOGLOBIN 29.9 pg (27.0-33.0); MEAN CORPUSCULAR HGB CONC 33.5 g/dl (32.0-36.5); MEAN CORPUSCULAR VOLUME 89.1 fl (80.0-96.0); MONO # 0.7 10^3/uL (0.0-0.8); MONO % 9.4 % (0.0-5.0); NEUTROPHILS # 3.6 10^3/uL (1.8-7.7); NEUTROPHILS % 51.2 % (36.0-66.0); PLATELET COUNT, AUTOMATED 172 10^3/uL (150-450); RED BLOOD COUNT 3.75 10^6/uL (4.30-6.10); WHITE BLOOD COUNT 6.9 10^3/uL (4.0-10.0)
[2018-10-11 16:57] LABS: INR 0.95; PROTHROMBIN TIME 12.8 SECONDS (12.1-14.4)
[2018-10-11 16:58] LABS: PARTIAL THROMBOPLASTIN TIME 31.1 SECONDS (25.4-37.6)
--- NOTE | 2018-10-11 17:12 | REP ---
Right lower extremity Duplex Doppler venous ultrasound: Real time compression and duplex Doppler interrogation of the right lower extremity deep venous system is performed. The right common femoral, superficial femoral and popliteal veins are fully compressible with transducer pressure and demonstrate normal spontaneous and phasic flow, without evidence of deep venous thrombosis. Impression: No evidence of deep venous thrombosis of the right lower extremity femoral popliteal venous system. Electronically Signed by Yoel Hadley MD 10/11/2018 05:04 P
[2018-10-11 17:18] LABS: ALBUMIN 3.1 GM/DL (3.2-5.2); BILIRUBIN,DIRECT 0.2 MG/DL (0.0-0.2); BILIRUBIN,TOTAL 0.7 MG/DL (0.2-1.0); C REACTIVE PROTEIN QUANTITATIV 3.08 MG/DL (0.00-0.30); CALCIUM LEVEL 8.4 MG/DL (8.8-10.2); CREATININE FOR GFR 2.33 MG/DL (0.70-1.30); POTASSIUM SERUM 3.9 MEQ/L (3.5-5.1); TOTAL PROTEIN 7.9 GM/DL (6.4-8.2)
--- NOTE | 2018-10-11 18:21 | REP ---
RIGHT KNEE SERIES: Four views of the right knees are performed. There is no fracture or dislocation. There is a total knee prosthesis in place, in good position with no abnormal surrounding lucency in the adjacent femur or tibia. IMPRESSION: Total knee prosthesis. No fracture or dislocation. Electronically Signed by Yoel Hadley MD 10/11/2018 08:18 P
[2018-10-11 18:31] VITALS: BP 155/70
[2018-10-11 19:45] LABS: ERYTHROCYTE SEDIMENTATION RATE 96 mm/hr (0-20)
--- NOTE | 2018-10-12 16:10 | ECGEPIP ---
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
== END 2018-10-11 18:30 | disposition home or self-care (01) ==
LOC: M ED 15:44
DX: L03.115 Cellulitis of right lower limb (principal); M79.89 Other specified soft tissue disorders; Z96.651 Presence of right artificial knee joint; R26.2 Difficulty in walking, not elsewhere classified; I48.91 Unspecified atrial fibrillation; I12.9 Hypertensive chronic kidney disease with stage 1 through stage 4 chronic kidney disease, or unspecified chronic kidney disease; E11.9 Type 2 diabetes mellitus without complications; E78.5 Hyperlipidemia, unspecified; N18.9 Chronic kidney disease, unspecified; Z79.899 Other long term (current) drug therapy

== ENCOUNTER 2018-10-17 21:45 | Observation (INO) | payer MEDICARE ==
[~2018-10-17] VITALS: Ht 170.2 cm; Wt 83.9 kg
[~2018-10-17 21:45] MED LIST changes: +CENT2OIN EXT; +KEFL500C17 PO; +LOPR1TAB6 PO
[2018-10-17 22:32] LABS: HEMOGLOBIN 11.9 g/dl (13.5-17.5); MEAN CORPUSCULAR HEMOGLOBIN 30.1 pg (27.0-33.0); MEAN CORPUSCULAR VOLUME 88.6 fl (80.0-96.0); PLATELET COUNT, AUTOMATED 176 10^3/uL (150-450); RED BLOOD COUNT 3.95 10^6/uL (4.30-6.10); WHITE BLOOD COUNT 6.7 10^3/uL (4.0-10.0)
[2018-10-17 22:49] LABS: PROTHROMBIN TIME 13.3 SECONDS (12.1-14.4)
[2018-10-17 23:05] LABS: BILIRUBIN,TOTAL 0.5 MG/DL (0.2-1.0); CALCIUM LEVEL 8.9 MG/DL (8.8-10.2); CK-MB VALUE MASS 2.6 NG/ML (<3.6); CREATININE FOR GFR 2.6 MG/DL (0.70-1.30); GLOMERULAR FILTRATION RATE 25.5 (>42); MB/CK RELATIVE INDEX 0.62 (< OR =4); POTASSIUM SERUM 3.6 MEQ/L (3.5-5.1); TOTAL PROTEIN 7.9 GM/DL (6.4-8.2); TROPONIN I 0.06 NG/ML (< 0.10)
[2018-10-17 23:15] LABS: EOSINOPHILS 2 % (0-5); LYMPHOCYTES 4 % (16-52); NEUTROPHILS 94 % (35-75)
[2018-10-17 23:16] LABS: PLATELET ESTIMATE NORMAL (NORMAL)
--- NOTE | 2018-10-18 01:12 | REPVR ---
EXAM: CT Head Without Contrast EXAM DATE/TIME: 10/17/2018 11:46 PM CLINICAL HISTORY: 78 years old, male; Signs and symptoms; Dizziness; Additional info: Syncope, abd pain, ckd TECHNIQUE: Imaging protocol: Axial computed tomography images of the head without contrast. Radiation optimization: All CT scans at this facility use at least one of these dose optimization techniques: automated exposure control; mA and/or kV adjustment per patient size (includes targeted exams where dose is matched to clinical indication); or iterative reconstruction. COMPARISON: CT Head without contrast 06/05/2016 6:21 PM FINDINGS: There is no acute intracranial hemorrhage, extra axial hematoma, or midline shift. There is parenchymal volume loss, appropriate for age related involutional change. There is slight prominence of the ventricles likely secondary to parenchymal volume loss is stable appearance to the prior exam. Periventricular and deep white matter small/mild foci of hypoattenuation are noted, consistent with mild microvascular ischemic change and similar in appearance to the prior exam. No CT findings are seen at the current time to suggest changes of acute territorial vascular infarction. Note is made however, that CT changes, may lag clinical findings in acute CVA. If clinically indicated, consideration could be given to MRI with diffusion weighted imaging, due to its greater sensitivity, for detection of acute ischemic change. Intracranial calcifications are incidentally noted. No pericranial scalp hematoma is seen. Ocular postoperative changes are noted. No acute cranial vault fracture is seen. No fluid is seen within the visualized mastoid air cells. Mucosal thickening and/or thickening fluid near completely opacified the visualized right maxillary sinus. This is new compared to the prior exam. IMPRESSION: No evidence of acute territorial major vessel infarct, mass effect, or hemorrhage. Age related involutional change. Mild microvascular ischemic changes, similar to prior exam. There is right maxillary sinus disease, which appears new compared to the prior exam. Electronically signed by: Martell Dai On 10/18/2018 01:12:06 AM
--- NOTE | 2018-10-18 01:26 | REPVR ---
EXAM: CT Chest Without Contrast EXAM DATE/TIME: 10/17/2018 11:46 PM CLINICAL HISTORY: 78 years old, male; Chest pain; Type not specified; Additional info: Syncope, abd pain, ckd TECHNIQUE: Imaging protocol: Axial computed tomography images of the chest without intravenous contrast. Coronal and sagittal reformatted images were created and reviewed. Radiation optimization: All CT scans at this facility use at least one of these dose optimization techniques: automated exposure control; mA and/or kV adjustment per patient size (includes targeted exams where dose is matched to clinical indication); or iterative reconstruction. COMPARISON: CT Chest without contrast 05/04/2013 10:32 AM Study limitations: Evaluation of mediastinal and hilar structures, vasculature, inflammatory change and mass is suboptimal on noncontrast imaging. FINDINGS: HEART AND VASCULATURE: Cardiothoracic ratio is at the upper end of normal. There is some calcification at the aortic and mitral valves. There is coronary artery disease. No significant pericardial effusion. The thoracic aorta is non-aneurysmal. There is thoracic aortic atherosclerosis. Diameter of the main pulmonary trunk is 31.6 mm. MEDIASTINUM: No mediastinal gas. The visualized thyroid gland is within normal limits. No mediastinal hematoma. Small mediastinal lymph nodes are seen. No lymphadenopathy by size criteria. There appear to be some calcified mediastinal and hilar lymph nodes which may be the sequela of prior granulomatous disease. No periesophageal gas or fluid. LUNGS: The lungs are symmetrically expanded. There is no consolidation, pneumothorax or pleural effusion. Bibasal and dependant subpleural reticular and groundglass opacities are noted which may be secondary to atelectasis and/or parenchymal scarring. Noncalcified 5 mm left lower lobe pulmonary nodule is noted, stable from the prior exam, suggesting benign nature. No suspicious pulmonary parenchymal mass. No peribronchial thickening. UPPER ABDOMEN: Please refer to same day CT abdomen report for complete findings. MSK AND BODY WALL: There is bilateral gynecomastia, similar to the prior exam. Correlation with clinical breast exam and clinical followup is advised. No acute fracture. Degenerative changes of the spine noted. There are degenerative changes of the right shoulder. IMPRESSION: Study limitations discussed above. Atherosclerosis including coronary artery disease. Sequela of prior granulomatous disease noted. Atelectasis and/or pulmonary parenchymal scarring. Bilateral gynecomastia as discussed above. Other incidental findings discussed above. Electronically signed by: Martell Dai On 10/18/2018 01:26:00 AM
--- NOTE | 2018-10-18 01:33 | REPVR ---
EXAM: CT Abdomen and Pelvis Without Contrast EXAM DATE/TIME: 10/17/2018 11:46 PM CLINICAL HISTORY: 78 years old, male; Abdominal pain; Generalized; Additional info: Syncope, abd pain, ckd TECHNIQUE: Imaging protocol: Axial computed tomography images of the abdomen and pelvis without contrast. Coronal and sagittal reformatted images were created and reviewed. Radiation optimization: All CT scans at this facility use at least one of these dose optimization techniques: automated exposure control; mA and/or kV adjustment per patient size (includes targeted exams where dose is matched to clinical indication); or iterative reconstruction. COMPARISON: CT ABD PELVIS W/O CONTRAST 06/12/2017 10:32 AM Study limitations: Evaluation for mass, inflammatory change, including bowel wall/fold thickening, viscera, and vasculature, is suboptimal without contrast. Image quality is slightly degraded by beam hardening artifacts and positioning of the patient's arms alongside the body wall. FINDINGS: LUNG BASES: Please refer to same day CT chest report. VASCULAR: No abdominal aortic aneurysm or retroperitoneal hematoma. Mild aortoiliac and femoral calcific atherosclerosis. PERITONEAL : No free air or free fluid. GI: No hiatal hernia. The stomach contains ingested material and gas. The stomach is not sufficiently distended to evaluate wall thickening. Small bowel loops in the left upper quadrant are slightly distended, up to 2.9 cm in diameter. Wall and fold thickening is not reliably assessed, secondary to lack of any contrast. This dilation could be physiologic, secondary to peristalsis, or secondary to ileus or gastroenteritis. If there is possibility for developing obstruction, consider small bowel follow through for further assessment. No focal mesenteric inflammatory stranding. No mesenteric lymphadenopathy by size criteria. Scattered fecal material and gas within portions of the colon and rectum. No pericolonic inflammatory stranding. No evidence of acute diverticulitis. The appendix does not appear inflamed. HEPATOBILIARY, PANCREAS, SPLEEN: Sagittal hepatic length is 15.7 cm. The gallbladder has been removed. No pancreatic inflammation. Spleen not enlarged. ADRENALS, KIDNEYS, BLADDER, RETROPERITONEAL: Adrenals within normal limits. No hydronephrosis. No renal calculi. Mild nonspecific perinephric stranding. Mildly distended urinary bladder. No perivesical stranding. Mild to moderate prostate enlargement impressing along the base of the bladder. Clinical correlation is advised. Prostate calcifications are noted. MUSCULOSKELETAL: Subcutaneous nodularity along the anterior abdominal wall may be from subcutaneous injections. Subcutaneous gluteal calcifications are seen which may be injection granulomas. Degenerative changes of the spine, most pronounced at the lumbar levels. There is mild scoliosis. Degenerative changes of the pelvis are noted. No acute fracture or suspicious bone lesion. IMPRESSION: Study limitations as discussed above. No free air, free fluid or focal mesenteric inflammation. Nonspecific gastrointestinal findings as discussed above. Other nonemergent findings discussed above. Electronically signed by: Martell Dai On 10/18/2018 01:33:21 AM
[2018-10-18 03:06] LABS: CK-MB VALUE MASS 2.3 NG/ML (<3.6); MB/CK RELATIVE INDEX 0.55 (< OR =4); TROPONIN I 0.1 NG/ML (< 0.10)
[2018-10-18] MEDS ORDERED: BYDU1INJ SC (03:20)
[2018-10-18] MEDS ORDERED: ALLO100T PO (03:20)
[2018-10-18] MEDS ORDERED: SYNT100T PO (03:20)
[2018-10-18] MEDS ORDERED: SIMV40TA2 PO (03:20)
[2018-10-18] MEDS ORDERED: SPIR-10 PO (03:20)
[2018-10-18] MEDS ORDERED: FENO48TA2 PO (03:20)
[2018-10-18] MEDS ORDERED: GLIM4TAB PO (03:20)
[2018-10-18] MEDS ORDERED: LASI80TA3 PO (03:20)
[2018-10-18] MEDS ORDERED: CEFT1INJ5 IM (03:20)
[2018-10-18] MEDS ORDERED: METO1TAB32 PO (03:20)
[2018-10-18] MEDS ORDERED: PATIENT COMMENT (03:21)
--- NOTE | 2018-10-18 06:05 | ECGEPIP ---
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
--- NOTE | 2018-10-18 07:36 | REP ---
Portable chest, 10:08 p.m., single AP view with the patient sitting: Comparison is 2017. The lung moore are clear. The cardiac size is normal. The eliot and mediastinum are unremarkable. There is advanced a right shoulder osteoarthritis, unchanged. Impression: No acute cardiopulmonary findings. Chronic advanced right shoulder osteoarthritis. Electronically Signed by Yoel Perrin MD 10/18/2018 07:27 A
[2018-10-18] MEDS ORDERED: GLUCOSE 4 GM CHEW TABLET PO PRN (09:15)
[2018-10-18] MEDS ORDERED: DEXTROSE 50% 50 ML SYRINGE IV PRN (09:15)
[2018-10-18] MEDS ORDERED: GLUCAGON FOR INJ 1 MG VIAL (J1610) SC PRN (09:15)
[2018-10-18] MEDS: HEPARIN SOD (PORCINE) 5000 UNITS/ML VIAL SC SCH ×2 (10:02→21:53)
[2018-10-18 10:22] LABS: CK-MB VALUE MASS 2.3 NG/ML (<3.6); MB/CK RELATIVE INDEX 0.52 (< OR =4); TROPONIN I 0.1 NG/ML (< 0.10)
[2018-10-18] MEDS: NS 1,000 ML IV SCH (12:14)
[2018-10-18] MEDS: HumaLOG INSULIN (NovoLOG) PER UNIT SC SCH ×2 (12:51→18:12)
[2018-10-18 13:00] VITALS: BP 142/65
--- NOTE | 2018-10-18 13:09 | REP ---
CAROTID ULTRASOUND: Real-time ultrasound evaluation and duplex Doppler interrogation of the extracranial carotid vasculature is performed. There is mild plaquing and narrowing in both carotid bulbs extending into the internal and external carotid arteries. Luminal narrowing is less than 50%. There is no evidence of hemodynamically significant stenosis of either internal carotid artery. Normal flow velocities are seen. The vertebral arteries demonstrate normal direction of flow. RIGHT LEFT Peak systolic velocity ICA 87.3 cm/s 91.2 cm/s End diastolic velocity ICA 22 cm/s 25.1 cm/s Peak systolic velocity CCA 177.7 cm/s 133.5 cm/s Peak systolic velocity ECA 135.5 cm/s 142.5 cm/s ICA/CCA ratio 0.49 0.68 IMPRESSION: Bilateral luminal narrowing of the internal carotid arteries less than 50%. No evidence of hemodynamically significant stenosis. Electronically Signed by Yoel Hadley MD 10/18/2018 01:00 P
[2018-10-18 13:14] VITALS: BP 147/69
[2018-10-18 16:00] VITALS: BP 136/65
--- NOTE | 2018-10-18 16:45 | HPEPDOC ---
General Date of Admission Oct 18, 2018 at 09:05 Date of Service: Oct 18, 2018 Attending Physician: MARICHUY ORTIZ MD Chief Complaint The patient is a 78-year-old male admitted with a reason for visit of Syncope. Source: Patient, Family Exam Limitations: Hard of hearing Timing/Duration: Unsure Severity: Mild Associated Symptoms: Denies Symptoms History of Present Illness This is a 78-year-old male who describes an episode of syncope in the bathroom. He describes urinating and then losing consciousness. He denies hitting his head. He also denies any dizziness or lightheadedness associated with the event. Daughter at bedside states he did not eat or drink for most of the day preceding the episode. The patient has a history of tqz-tixraeq-ejtefyvfi diabetes mellitus and is reportedly on insulin. He apparently did continue to take his insulin despite not eating. The daughter also relates he's had a "infection" to the skin of his knee. He has been on a prolonged course of oral antibiotics. Home Medications Scheduled Allopurinol (Allopurinol) 100 Mg Tablet, 100 MG PO BID, (Reported) Ceftriaxone Sodium (Ceftriaxone) 1 Gm Vial, 1 GM IM DAILY, (Reported) PICKED UP 10/17/18 FOR 5 DAYS Cephalexin (Keflex) 500 Mg Capsule, 500 MG PO QID, (Reported) 14 DAYS Exenatide Microspheres (Bydureon) 2 Mg/0.65 Ml Pen.injctr, 2 MG SC 1XWK, (Reported) Fenofibrate Nanocrystallized (Fenofibrate) 48 Mg Tablet, 48 MG PO DAILY, (Reported) Furosemide (Lasix) 80 Mg Tablet, 80 MG PO BID, (Reported) Glimepiride (Glimepiride) 4 Mg Tablet, 4 MG PO DAILY, (Reported) Levothyroxine Sodium (Synthroid) 100 Mcg Tablet, 100 MCG PO DAILY, (Reported) Metoprolol Succinate (Metoprolol Succinate) 25 Mg Tab.er.24h, 25 MG PO DAILY, (Reported) Mupirocin (Centany) 30 Gm Oint...g., 1 DOSE EXT BID, (Reported) USES ON RIGHT KNEE Simvastatin (Simvastatin) 40 Mg Tablet, 40 MG PO DAILY, (Reported) Spironolactone (Spironolactone) 25 Mg Tablet, 25 MG PO DAILY, (Reported) Allergies Coded Allergies: No Known Allergies (Unverified , 01/11/18) Past Medical History Medical History Past medical history includes rfr-rcmrrpt-qwxdjetwj diabetes mellitus, hypertension, atrial fibrillation for which he is not on anticoagulation currently, hypothyroidism, dyslipidemia. Surgical History Surgical history includes prior right total knee arthroplasty Family History Patient reports a maternal and paternal history of being long-lived. Social History * Smoker: non-smoker Alcohol: occationally Drugs: denies Recent Travel/Sick Contacts: Denies: Recent travel, Recent sick contacts Psychosocial History: No pertinent psych hx Patient owns a gas station in town. He lives with very supportive family. He is full CODE STATUS. A-FIB/CHADSVASC A-FIB History Current/History of A-Fib/PAF?: Yes Current PO Anticoag Therapy: No Age/Risk Factor Scoring CHADSVASC: CHADSVASC Response (Comments) Value Age Risk Factor Age >/= 75 years old 2 Gender Risk Factor Male 0 Hx of CHF No 0 Hx of HTN Yes 1 Hx of Stroke/TIA/or VTE No 0 Hx of Diabetes Yes 1 Hx of Vascular Disease No 0 Total 4 Treatment Treatment ordered: Heparin IV bridge Therapy Review of Systems Constitutional: Denies: Chills, Fever, Night Sweats Eyes: Denies: Pain, Vision change ENT: Denies: Head Aches, Ear Pain, Dysphagia Skin: Denies: Rash, Lesions, Breakdown Pulmonary: Denies: Dyspnea, Cough Cardiovascular: Denies: Chest Pain, Palpitations, Orthopnea, Paroxysmal Noc. Dyspnea, Lt Headedness Gastrointestinal: Denies: Nausea, Vomiting, Abdominal Pain, Diarrhea Genitourinary: Denies: Dysuria, Frequency, Incontinence, Retention Hematologic: Denies: Bruising, Bleeding Excessively Musculoskeletal: Denies: Neck Pain, Back Pain, Joint Pain, Muscle Pain, Spasms Neurological: Denies: Weakness, Numbness, Change in speech, Confusion Psych: Reports: Mood Normal; Denies: Depression, Memory Issues Other systems Review of systems is otherwise negative except as stated in the breech presentat ion. Physical Examination General Exam: Positive: Cooperative, No Acute Distress Eye Exam: Positive: PERRLA, Conjunctiva & lids normal (no scleral icterus) ENT Exam: Positive: Mucous membr. moist/pink, Tongue Midline Neck Exam: Positive: Supple; Negative: JVD, thyromegaly, +2 carotid pulse wo bruit, Lymphadenopathy, Other Chest Exam: Positive: Clear to auscultation, Normal air movement; Negative: Rales, Rhonchi, Wheezing, Diminished, Other Heart Exam: Positive: Rate Normal; Negative: Tachycardic, Bradycardic, Regular Rhythm, Irregular Rhythm, Normal S1, Normal S2, Gallops, Murmurs, Rubs, Other Telemetry: Positive: No significant arrhythmia Abdomen Exam: Negative: Normal bowel sounds, BS Hyperactive, BS Hypoactive, Soft, Tenderness, Hepatospenomegaly, Mass, Hernia, Other Extremity Exam: Negative: Clubbing, Cyanosis, Edema, Normal pulses, Tenderness, Swelling, Other Skin Exam: Positive: Other skin issue (skin to right knee is dry with scaling and slough. There is no active drainage or remarkable erythema. This is site of his prior reported infection.) Neuro Exam: Positive: Normal Gait, Normal Speech, Cranial Nerves 3-12 NL, Reflexes 2+ Psych Exam: Positive: Mental status NL, Mood NL, Oriented x 3 (had some mild memory deficits) Vital Signs Vital Signs Date Time Temp Pulse Resp B/P (MAP) Pulse Ox O2 Delivery O2 Flow Rate FiO2 10/18/18 13:15 90 100 10/18/18 13:14 147/69 (95) 10/18/18 13:00 18 10/18/18 08:07 98.1 Room Air Laboratory Data Labs 24H Laboratory Tests 2 10/17/18 22:17: Nucleated Red Blood Cells % (auto) 0.0, Neutrophils 94H, Lymphocytes (Manual) 4L, Eosinophils (Manual) 2, Platelet Estimate NORMAL, Prothrombin Time 13.3, Prothromb Time International Ratio 1.00, Anion Gap 10, Glomerular Filtration Rate 25.5L, Blood Urea Nitrogen 45H, Creatinine 2.60H, Sodium Level 136, Potassium Level 3.6, Chloride Level 102, Carbon Dioxide Level 24, Calcium Level 8.9, Aspartate Amino Transf (AST/SGOT) 43H, Alanine Aminotransferase (ALT/SGPT) 27, Total Creatine Kinase 420H, Alkaline Phosphatase 63, Total Bilirubin 0.5, Total Protein 7.9, Albumin 3.0L, Creatine Kinase MB 2.6, Creatine Kinase MB Relative Index 0.62, Troponin I 0.06, Albumin/Globulin Ratio 0.61L, Lipase 3811H 10/17/18 23:12: Lactic Acid Level 2.3*H 10/18/18 02:28: Total Creatine Kinase 420H, Creatine Kinase MB 2.3, Creatine Kinase MB Relative Index 0.55, Troponin I 0.10#, Lipase 1678H 10/18/18 09:35: Total Creatine Kinase 443H, Creatine Kinase MB 2.3, Creatine Kinase MB Relative Index 0.52, Troponin I 0.10, Lactic Acid Followup at 4 Hours 1.4 10/18/18 12:47: Bedside Glucose (Misc Panel) 278H 10/18/18 13:08: Urine Color YELLOW, Urine Appearance CLEAR, Urine pH 5.0, Urine Specific [place] 1.012, Urine Protein 1+H, Urine Glucose (UA) 2+H, Urine Ketones NEGATIVE, Urine Blood 1+H, Urine Nitrite NEGATIVE, Urine Bilirubin NEGATIVE, Urine Urobilinogen 0.2, Urine Leukocyte Esterase NEGATIVE, Urine WBC (Auto) 1, Urine RBC (Auto) 2, Urine Hyaline Casts (Auto) 3, Urine Bacteria (Auto) NEGATIVE, Urine Squamous Epithelial Cells 0, Urine Sperm (Auto) CBC/BMP Laboratory Tests 10/17/18 22:17 Red Blood Count 3.95 L, Mean Corpuscular Volume 88.6, Mean Corpuscular Hem oglobin 30.1, Mean Corpuscular Hemoglobin Concent 34.0, Red Cell Distribution Width 15.0 H, Calcium Level 8.9, Aspartate Amino Transf (AST/SGOT) 43 H, Alanine Aminotransferase (ALT/SGPT) 27, Total Creatine Kinase 420 H, Alkaline Phosphatase 63, Total Bilirubin 0.5, Total Protein 7.9, Albumin 3.0 L Microbiology Microbiology 10/17/18 Blood Culture, Received Pending Echocardiogram This study is pending RAD Interpretation STUDY: head CT RAD Interpretation: Normal (IMPRESSION:) Problems (1) Syncope Permanent Comment: This appears to multifactorial. Etiologies include vasovagal response to micturition. Patient also appears to have been dehydrated with little or no intake. Plans are to rehydrate him gently with normal saline. We will place him on site monitor to evaluate for any contributory cardiac arrhythmias. We will also obtain echocardiogram and carotid Dopplers as well. Last Edited By: Marichuy Ortiz MD on Oct 18, 2018 16:35 Onset Date: ~ 10/17/2018 Status: Acute Response to Treatment: Stable Discussed With: Family with Pt Consent (2) CKD (chronic kidney disease) stage 3, GFR 30-59 ml/min Permanent Comment: He has at least chronic kidney disease stage III. His current creatinine is somewhat above his baseline indicating some prerenal factor such as dehydration. Plan started gently hydrate him back to his baseline. Last Edited By: Marichuy Ortiz MD on Oct 18, 2018 16:37 Status: Acute Response to Treatment: Improving Discussed With: Family with Pt Consent Problem Specific Plan: Repeat Labs (3) Diabetes mellitus Permanent Comment: We will continue his usual medications where possible, for diabetes management. He'll be restored to a consistent carbohydrate diet. We w ill monitor his blood sugars and make use of sliding scale insulin when necessary. Last Edited By: Marichuy Ortiz MD on Oct 18, 2018 16:41 Status: Chronic Response to Treatment: Stable Discussed With: Family with Pt Consent Problem Specific Plan: Repeat Labs Plan / VTE VTE Prophylaxis Ordered?: Yes Plan Diet: Continue Current Activity: Encourage Ambulation Therapy: PT, OT Diagnostics: Repeat Labs in AM, TTE Anticipated Discharge: Home MARICHUY ORTIZ MD Oct 18, 2018 16:45
[2018-10-18 20:03] VITALS: BP 144/65
[2018-10-18] MEDS ORDERED: HumaLOG INSULIN (NovoLOG) PER UNIT SC SCH (21:00)
[2018-10-18 22:23] VITALS: BP 141/65
[2018-10-18] MEDS: diphenhydrAMINE 25 MG CAP PO PRN (22:54)
[2018-10-19] VITALS: BP 120/58
[2018-10-19] MEDS: NS 1,000 ML IV SCH ×2 (00:22→12:15)
[2018-10-19 04:00] VITALS: BP 115/54
[2018-10-19 06:01] LABS: HEMATOCRIT 29.3 % (42.0-52.0); MEAN CORPUSCULAR HEMOGLOBIN 30.5 pg (27.0-33.0); MEAN CORPUSCULAR HGB CONC 33.1 g/dl (32.0-36.5); MEAN CORPUSCULAR VOLUME 92.1 fl (80.0-96.0); PLATELET COUNT, AUTOMATED 151 10^3/uL (150-450); RED BLOOD COUNT 3.18 10^6/uL (4.30-6.10); WHITE BLOOD COUNT 6.8 10^3/uL (4.0-10.0)
[2018-10-19 06:11] LABS: HEMOGLOBIN 9.7 g/dl (13.5-17.5)
[2018-10-19 06:30] LABS: ALBUMIN 2.3 GM/DL (3.2-5.2); BILIRUBIN,TOTAL 0.3 MG/DL (0.2-1.0); CALCIUM LEVEL 8.4 MG/DL (8.8-10.2); CREATININE FOR GFR 2.54 MG/DL (0.70-1.30); GLOMERULAR FILTRATION RATE 26.2 (>42); POTASSIUM SERUM 4.1 MEQ/L (3.5-5.1); THYROID STIMULATING HORMONE 0.281 uIU/ML (0.358-3.740); THYROXINE (T4) 8.3 UG/DL (4.5-12.0); TOTAL PROTEIN 6.7 GM/DL (6.4-8.2)
[2018-10-19 08:00] VITALS: BP 133/60
[2018-10-19] MEDS: diphenhydrAMINE 25 MG CAP PO PRN (09:22)
[2018-10-19] MEDS: HumaLOG INSULIN (NovoLOG) PER UNIT SC SCH ×2 (09:30→12:44)
[2018-10-19] MEDS: HEPARIN SOD (PORCINE) 5000 UNITS/ML VIAL SC SCH (09:32)
[2018-10-19 12:00] VITALS: BP 124/60
--- NOTE | 2018-10-19 15:15 | REP ---
RIGHT SHOULDER SERIES: Three views. HISTORY: Right shoulder pain after a fall. FINDINGS: Three views of the right shoulder demonstrate normal alignment of the glenohumeral and acromioclavicular joints. There is mild osteoarthritic hypertrophy at the AC joint and there is some inferolateral acromion process spurring. There is severe osteoarthritis of the glenohumeral articulation with sclerosis, large osteophyte formation, and subtle glenoid irregularity and subcortical cyst formation. No fracture is seen. IMPRESSION: No traumatic abnormality noted. Advanced osteoarthritis of the glenohumeral articulation and mild OA of the AC joint. Electronically Signed by De Plaza MD 10/19/2018 04:49 P
[2018-10-19] MEDS ORDERED: BENA25CA4 PO (15:16)
--- NOTE | 2018-10-19 20:05 | DS.PDOC ---
Discharge Summary General Date of Admission Oct 18, 2018 at 09:05 Date of Discharge 10/19/2018 Discharge Summary PROCEDURES PERFORMED DURING STAY: None. ADMITTING DIAGNOSES: 1. Syncope. DISCHARGE DIAGNOSES: 1. Syncope resolved, non insulin dependent diabetes mellitus, chronic atrial fibrillation, chronic kidney disease stage III, essential hypertension, dyslipidemia, hypothyroidism.. COMPLICATIONS/CHIEF COMPLAINT: Syncope. HISTORY OF PRESENT ILLNESS: This is a 78-year-old male who describes an episode of syncope in the bathroom. He describes urinating and then losing consciousness. He denies hitting his head. He also denies any dizziness or lightheadedness associated with the event. Daughter at bedside states he did not eat or drink for most of the day preceding the episode. The patient has a history of [id number] diabetes mellitus and is reportedly on insulin. He apparently did continue to take his insulin despite not eating. The daughter also relates he's had a "infection" to the skin of his knee. He has been on a prolonged outpatient course of oral antibiotics. Also, the daughter states the patient is not on chronic anticoagulation for his atrial fibrillation. She states he had been at one time but that his doctors stopped it, stating that he did not need it. . HOSPITAL COURSE: The patient was admitted to the telemetry floor. There are no notable EKG changes or arrhythmias. Head CT did not show any sign of stroke or other lesion. Patient was evaluated by carotid Dopplers which were negative. Echocardiogram was pending at the time of discharge. Patient did not have any recurrence of this event. The patient did complain of shoulder pain related to his fall. He had initially told us it was his right shoulder. X-ray of the shoulder was negative for fracture or dislocation. The patient was evaluated by physical and occupational therapy services. He was noted to be quite independent and not to have any needs. The patient was also noted not to demonstrate any orthostatic hypotension. The patient's event was likely attributable to hypovolemia initially since he had not eaten or drunk that day. The patient did have a transient elevation of his lipase. This was also attributed to dehydration. The patient had absolutely no symptoms and no changes to CT scan imaging.. DISCHARGE MEDICATIONS: Please see below. There are no changes to his regimen ALLERGIES: Please see below. PHYSICAL EXAMINATION ON DISCHARGE: VITAL SIGNS: Please see below. ENT: Oral mucosa is moist, tongue is midline, no adenopathy or thyromegaly. Cardiovascular: Generally regular rate and rhythm with no murmur. Respiratory: Clear to auscultation with good air movement and no wheezes or cough. Abdomen: Nontender, nondistended, soft, bowel tones present. Extremities: Nontender, healed. Pulses palpable, no signs of bruising or injury. Neuro: No focal neuromotor or sensory deficits. Psych: Generally cooperative and pleasant with some memory deficits LABORATORY DATA: Please see below. IMAGING: PROGNOSIS: ACTIVITY: As tolerated. DIET: Consistent carbohydrate DISCHARGE PLAN: The patient is stable for discharge to home. There are no changes to his medication regimen. He's been advised not to skip meals. He is to follow-up with his primary care provider in one week. DISPOSITION: 01 Home, Self-Care. DISCHARGE INSTRUCTIONS: 1. . ITEMS TO FOLLOWUP ON ON OUTPATIENT: 1. . DISCHARGE CONDITION: Stable. TIME SPENT ON DISCHARGE: Greater than 35 minutes. Vital Signs/I&Os Vital Signs Date Time Temp Pulse Resp B/P (MAP) Pulse Ox O2 Delivery O2 Flow Rate FiO2 10/19/18 12:00 97.7 76 20 124/60 (81) 100 10/18/18 08:07 Room Air I&O- Last 24 Hours up to 6 AM 10/19/18 06:00 Intake Total 2335 ml Output Total 0 ml Balance 2335 ml Laboratory Data Labs 24H Laboratory Tests 2 10/18/18 20:07: Bedside Glucose (Misc Panel) 338H 10/19/18 05:27: Nucleated Red Blood Cells % (auto) 0.0, Anion Gap 6L, Glomerular Filtration Rate 26.2L, Blood Urea Nitrogen 50H, Creatinine 2.54H, Sodium Level 139, Potassium Level 4.1, Chloride Level 107, Carbon Dioxide Level 26, Calcium Level 8.4L, Aspartate Amino Transf (AST/SGOT) 29, Alanine Aminotransferase (ALT/SGPT) 22, Total Creatine Kinase 246, Alkaline Phosphatase 45, Total Bilirubin 0.3, Total Protein 6.7, Albumin 2.3#L, Albumin/Globulin Ratio 0.52L, Lipase 561H, Thyroid Stimulating Hormone (TSH) 0.281L, Free Thyroxine Index 3.0, Thyroxine (T4) 8.3, Triiodothyronine (T3) Uptake 36 10/19/18 11:48: Bedside Glucose (Misc Panel) 191H 10/19/18 16:48: Bedside Glucose (Misc Panel) 209H CBC/BMP Laboratory Tests 10/19/18 05:27 Red Blood Count 3.18 L, Mean Corpuscular Volume 92.1, Mean Corpuscular Hem oglobin 30.5, Mean Corpuscular Hemoglobin Concent 33.1, Red Cell Distribution Width 15.5 H, Calcium Level 8.4 L, Aspartate Amino Transf (AST/SGOT) 29, Alanine Aminotransferase (ALT/SGPT) 22, Total Creatine Kinase 246, Alkaline Phosphatase 45, Total Bilirubin 0.3, Total Protein 6.7, Albumin 2.3 #L FSBS Laboratory Tests Test 10/18/18 20:07 10/19/18 11:48 10/19/18 16:48 Range/Units Bedside Glucose (Misc Panel) 338 191 209 83-110 MG/DL Microbiology Microbiology 10/17/18 Blood Culture - Preliminary, Resulted No growth after 24 hours . All specim... Discharge Medications Scheduled Allopurinol (Allopurinol) 100 Mg Tablet, 100 MG PO BID, (Reported) Ceftriaxone Sodium (Ceftriaxone) 1 Gm Vial, 1 GM IM DAILY, (Reported) PICKED UP 10/17/18 FOR 5 DAYS Cephalexin (Keflex) 500 Mg Capsule, 500 MG PO QID, (Reported) 14 DAYS Exenatide Microspheres (Bydureon) 2 Mg/0.65 Ml Pen.injctr, 2 MG SC 1XWK, (Reported) Fenofibrate Nanocrystallized (Fenofibrate) 48 Mg Tablet, 48 MG PO DAILY, (Reported) Furosemide (Lasix) 80 Mg Tablet, 80 MG PO BID, (Reported) Glimepiride (Glimepiride) 4 Mg Tablet, 4 MG PO DAILY, (Reported) Levothyroxine Sodium (Synthroid) 100 Mcg Tablet, 100 MCG PO DAILY, (Reported) Metoprolol Succinate (Metoprolol Succinate) 25 Mg Tab.er.24h, 25 MG PO DAILY, (Reported) Mupirocin (Centany) 30 Gm Oint...g., 1 DOSE EXT BID, (Reported) USES ON RIGHT KNEE Simvastatin (Simvastatin) 40 Mg Tablet, 40 MG PO DAILY, (Reported) Spironolactone (Spironolactone) 25 Mg Tablet, 25 MG PO DAILY, (Reported) Scheduled PRN Diphenhydramine HCl (Benadryl) 25 Mg Capsule, 25 MG PO Q6HP PRN for ITCHING Allergies Coded Allergies: No Known Allergies (Unverified , 01/11/18) ISAURO BOBBY MD Oct 19, 2018 20:05
--- NOTE | 2018-10-20 06:35 | ECHO ---
DATE OF PROCEDURE: 10/19/2018 DATE OF : 1940 AGE: 78 REFERRING PROVIDER: Dr. Marichuy Ortiz PATIENT LOCATION: Room 3229 REASON FOR ECHOCARDIOGRAM: Syncope 2-D MEASUREMENTS: IVS: 1.3 cm LV: 4.4 cm LVPW: 1.2 cm LA: 4.2 cm Aorta: 3.6 cm IVC: 2.1 cm DOPPLER MEASUREMENTS: Peak velocity across the aortic valve: 1.9 m/s Peak velocity across the LVOT: 1.1 m/s Peak gradient across the aortic valve: 15 mmHg Mean gradient across the aortic valve: 8 mmHg Mitral E: 1.0 Mitral A: 1.3 Ratio: 0.7 Maximum tricuspid valve velocity: 2.7 m/s 2-D COMMENTS: 1. Mildly increased left ventricular thickness with normal left ventricular size and normal global left ventricular systolic function. The estimated ventricular systolic ejection fraction is 65-70%. 2. Mildly enlarged left atrium. Normal right atrium and right ventricle. 3. The atrial septum appeared to be normal without evidence of defect or shunt. 4. Normal aortic root. 5. Trace pericardial effusion noted, no evidence of cardiac tamponade. 6. Mildly calcified aortic valve, leaflet excursion appeared to be normal. Mildly calcified mitral annulus with normal anterior mitral valve leaflet motion. Normal tricuspid valve and pulmonic valve. The proximal pulmonary artery branches were not well visualized. 7. The inferior vena cava was mildly enlarged, central venous pressure might be elevated. DOPPLER: Detects mild aortic regurgitation, mild mitral regurgitation, and mild tricuspid regurgitation. The calculated pulmonary artery systolic pressure varies between 30-40 mmHg. Abnormal relaxation pattern was noted across the mitral valve leaflets as well as the mitral valve annulus consistent with delayed relaxation. IMPRESSION: 1. Normal global left ventricular systolic function with mild concentric left ventricle hypertrophy. There are some features of left ventricular diastolic dysfunction manifested by abnormal relaxation. 2. Aortic valve sclerosis with mild aortic regurgitation and trivial aortic stenosis. 3. Mitral annulus calcification with mild mitral regurgitation and mildly enlarged left atrium. 4. Mild tricuspid regurgitation with probably mild pulmonary hypertension. 5. Trace pericardial effusion noted, no evidence of cardiac tamponade. [facility]
== END 2018-10-19 16:55 | disposition home or self-care (01) ==
LOC: M ED 21:45 → M ED INP 21:46 → UNDOADMOB 10-18 09:05 → M PCU 10-18 22:25 → M ED INP 10-18 22:25 → UNDODISOB 10-19 16:55
PROVIDERS: ADMIT Internal Medicine; ATTEND Internal Medicine
DX: R55 Syncope and collapse (principal); I48.2 Chronic atrial fibrillation; E11.9 Type 2 diabetes mellitus without complications; N18.3 Chronic kidney disease, stage 3 (moderate); I12.9 Hypertensive chronic kidney disease with stage 1 through stage 4 chronic kidney disease, or unspecified chronic kidney disease; E78.5 Hyperlipidemia, unspecified; E03.9 Hypothyroidism, unspecified; Z79.899 Other long term (current) drug therapy; M25.511 Pain in right shoulder; Z91.81 History of falling
CPT/HCPCS: 36415; 70450; 71045; 71250; 73030; 74176; 80053; 81001; 82550; 82553; 83605; 83690; 84436; 84443; 84479; 84484; 85025; 85027; 85610; 87040; 93005; 93041; 93306; 93880; 94760; 96372; 97161; 97165; 99285; G0378

== ENCOUNTER → 2018-11-26 | Outpatient (REF) | payer MEDICARE ==
[~2018-11-26] MED LIST changes: +BENA25CA4 PO; +CEFT1INJ5 IM; +METO1TAB32 PO; +PATIENT COMMENT; +SYNT100T PO
== END ==
LOC: M LAB REF 10:22
PROVIDERS: ATTEND Nurse Practitioner Family
DX: L30.9 Dermatitis, unspecified (principal)

== ENCOUNTER → 2019-05-31 | Outpatient (REF) | payer MEDICARE ==
[~2019-05-31] MED LIST changes: -FENO48TA2 PO; +FENO48TA7 PO; -GLIM4TAB PO; +GLIM4TAB5 PO; -SIMV40TA2 PO; +SIMV40TA20 PO
== END ==
LOC: M LAB REF 15:46
PROVIDERS: ATTEND Physician Assistant
DX: R50.9 Fever, unspecified (principal); R05 Cough

== ENCOUNTER → 2019-09-06 | Outpatient (REF) | payer MEDICARE ==
[2019-09-06 18:45] LABS: ALBUMIN 3.2 GM/DL (3.2-5.2); BILIRUBIN,DIRECT 0.2 MG/DL (0.0-0.2); BILIRUBIN,TOTAL 0.5 MG/DL (0.2-1.0); CHOLESTEROL RISK RATIO 3.384 (<5); THYROID STIMULATING HORMONE 0.638 uIU/ML (0.358-3.740); TOTAL PROTEIN 7.2 GM/DL (6.4-8.2)
[2019-09-06 18:55] LABS: HEMOGLOBIN A1c 8.9 %
== END ==
LOC: M LAB REF 16:34
PROVIDERS: ATTEND Internal Medicine Nephrology
DX: N18.3 Chronic kidney disease, stage 3 (moderate) (principal); E78.2 Mixed hyperlipidemia; E03.9 Hypothyroidism, unspecified; E11.21 Type 2 diabetes mellitus with diabetic nephropathy

== ENCOUNTER → 2020-05-21 | Outpatient (CLI) | payer SELFPAY ==
[~2020-05-21] MED LIST changes: +AMLO1TAB24 PO; -AMLO5TAB6 PO
== END ==
LOC: M LABSMTC 12:15
PROVIDERS: ATTEND Pediatrics
DX: Z20.822 Contact with and (suspected) exposure to COVID-19 (principal)

== ENCOUNTER → 2020-10-29 | Outpatient (REF) | payer MEDICARE ==
[~2020-10-29] MED LIST changes: -PEG1POW PO; +POLY17PO18 PO
== END ==
LOC: M LAB REF 17:08
PROVIDERS: ATTEND Internal Medicine Nephrology
DX: D50.9 Iron deficiency anemia, unspecified (principal); D63.1 Anemia in chronic kidney disease; N18.30 Chronic kidney disease, stage 3 unspecified

== ENCOUNTER 2020-11-07 11:11 | Outpatient (CLI) | payer MEDICARE ==
[~2020-11-07] VITALS: Ht 172.7 cm; Wt 86.2 kg
[~2020-11-07 11:11] MED LIST changes: +ALBUTEROL SULFATE 2.5 MG/0.5 ML INH NEB SOLN INH PRN; +EPINEPHrine INJ 1 MG/ML 1ML AMP IM PRN; +FERRIC CARBOXYMALTOSE INJ 750 MG, VIAL MATE ADAPTER 1 EACH in NS 250 ML IV ONE; +NS 1,000 ML IV SCH; +diphenhydrAMINE 50MG/ML VIAL (J1200) IV PRN; +methylPREDNISolone 125MG 2ML VIAL IV PRN
[2020-11-07 11:15] VITALS: BP 166/74
[2020-11-07 12:18] VITALS: BP 190/77
[2020-11-07 13:15] VITALS: BP 170/86
[2020-11-07 14:30] VITALS: BP 157/70
[2020-11-07 15:05] VITALS: BP 159/73
== END 2020-11-07 15:15 | disposition home or self-care (01) ==
LOC: M INFU 11:11
PROVIDERS: ATTEND Internal Medicine Nephrology
DX: D50.9 Iron deficiency anemia, unspecified (principal)
CPT/HCPCS: 96365; 96366; J1439

== ENCOUNTER → 2021-01-21 | Outpatient (CLI) | payer MEDICARE ==
[~2021-01-21] MED LIST changes: -ALBUTEROL SULFATE 2.5 MG/0.5 ML INH NEB SOLN INH PRN; -EPINEPHrine INJ 1 MG/ML 1ML AMP IM PRN; -FERRIC CARBOXYMALTOSE INJ 750 MG, VIAL MATE ADAPTER 1 EACH in NS 250 ML IV ONE; -NS 1,000 ML IV SCH; -diphenhydrAMINE 50MG/ML VIAL (J1200) IV PRN; -methylPREDNISolone 125MG 2ML VIAL IV PRN
[2021-01-21 11:04] LABS: HEMATOCRIT 33.8 % (42.0-52.0); HEMOGLOBIN 11.3 g/dl (13.5-17.5); MEAN CORPUSCULAR HEMOGLOBIN 30.5 pg (27.0-33.0); MEAN CORPUSCULAR HGB CONC 33.4 g/dl (32.0-36.5); MEAN CORPUSCULAR VOLUME 91.1 fl (80.0-96.0); PLATELET COUNT, AUTOMATED 157 10^3/uL (150-450); RED BLOOD COUNT 3.71 10^6/uL (4.30-6.10); WHITE BLOOD COUNT 5.3 10^3/uL (4.0-10.0)
[2021-01-21 11:55] LABS: ALBUMIN 2.9 GM/DL (3.2-5.2); BILIRUBIN,TOTAL 0.4 MG/DL (0.2-1.0); CALCIUM LEVEL 8.7 MG/DL (8.8-10.2); CHOLESTEROL RISK RATIO 3.264 (<5); CREATININE FOR GFR 2.74 MG/DL (0.70-1.30); GLOMERULAR FILTRATION RATE 23.9 (>35); POTASSIUM SERUM 4.4 MEQ/L (3.5-5.1); PROSTATIC SPECIFIC AG MONITOR 2.97 NG/ML (< 4.00); THYROID STIMULATING HORMONE 2.54 uIU/ML (0.358-3.740); TOTAL PROTEIN 6.8 GM/DL (6.4-8.2)
--- NOTE | 2021-01-21 11:55 | REP ---
INDICATION: COPD- LABS FIRST COMPARISON: 10/17/2018 as well as other prior exams. TECHNIQUE: PA/Lateral FINDINGS: Lungs: Clear, no infiltrate. Heart: Mildly enlarged. Mediastinum: Mediastinal silhouette unremarkable. Pleural angles: Unremarkable.. Bones and soft tissues: Unremarkable. IMPRESSION: No acute pulmonary disease. Mild cardiomegaly. <Electronically signed by Yoel Hadley > 01/21/21 [id number]
[2021-01-21 12:19] LABS: HEMOGLOBIN A1c 9.2 %
== END ==
LOC: M LAB 10:23
PROVIDERS: ATTEND Family Medicine
DX: J44.9 Chronic obstructive pulmonary disease, unspecified (principal); E07.9 Disorder of thyroid, unspecified; E78.00 Pure hypercholesterolemia, unspecified; R97.20 Elevated prostate specific antigen [PSA]

== ENCOUNTER 2021-02-21 16:10 | Emergency (ER) | payer MEDICARE ==
[~2021-02-21] VITALS: Ht 172.7 cm; Wt 85.2 kg
[~2021-02-21 16:10] MED LIST changes: -FENO48TA7 PO; +FENO48TA8 PO
--- OUTSIDE RECORDS SUMMARY | 2021-02-21 16:16 | CCD ---
Author Author [facility] Organization [facility] Address Unknown Phone Unavailable Support Name Relationship Address Phone DAVID VITAL Next Of Kin [address] [place] [address] [place] [address] [place] [address] YRIS VITAL Next Of [facility] [address] [place] [address] DAVID VITAL ECON [address] [place] [address] [phone] Re-disclosure Warning The records that you are about to access may contain information from federally-assisted alcohol or drug abuse programs. If such information is present, then the following federally mandated warning applies: This information has been disclosed to you from records protected by federal confidentiality rules (42 CFR part 2). The federal rules prohibit you from making any further disclosure of this information unless further disclosure is expressly permitted by the written consent of the person to whom it pertains or as otherwise permitted by 42 CFR part 2. A general authorization for the release of medical or other information is NOT sufficient for this purpose. The Federal rules restrict any use of the information to criminally investigate or prosecute any alcohol or drug abuse patient.The records that you are about to access may contain highly sensitive health information, the redisclosure of which is protected by Article 27-F of the [place] State Public Health law. If you continue you may have access to information: Regarding HIV / AIDS; Provided by facilities licensed or operated by the [facility] Office of Mental Health; or Provided by the [facility] Office for People With Developmental Disabilities. If such information is present, then the following [facility] mandated warning applies: This information has been disclosed to you from confidential records which are protected by state law. State law prohibits you from making any further disclosure of this information without the specific written consent of the person to whom it pertains, or as otherwise permitted by law. Any unauthorized further disclosure in violation of state law may result in a fine or assisted sentence or both. A general authorization for the release of medical or other information is NOT sufficient authorization for further disc losure. Family History Family Member Name Family Member Gender Family Member Status Date o f Status Description Data Source(s) Unknown Unknown Problem [facility]ENT ([facility]) Unknown Female Problem MEDENT ([facility]) Unknown Unknown Problem MED[facility] ([facility]) Encounters Encounter Providers Location Date Indications Data Source(s ) [facility] [address] [place] [address] 07/01/2020 12:00:00 AM EST eCW1 ([facility]) Immunizations Vaccine Date Status Description Data Source(s) COVID-19 VACC,MRNA(MODERNA)/PF 09/24/2020 12:00:00 AM EDT completed [facility] COVID-19 VACCINE Moderna 09/24/2020 12:00:00 AM EDT completed [facility] Vaccine Series Complete: YESThis Data wa s Submitted to [facility] Via [employer] COVID-19 VACCINE Moderna 08/26/2020 12:00:00 AM EDT completed [facility] Vaccine Series Complete: NOThis Data was Submitted to [facility] [employer] COVID-19 VACC,MRNA(MODERNA)/PF 08/26/2020 12:00:00 AM EDT completed [facility] INFLUENZA VIRUS VACCINE QUADRIVAL SPLIT 2019-(65 YR UP)/PF 01/16/2020 12:00:00 AM EDT completed [facility] Medications No Information Insurance Providers Payer name Policy type / Coverage type Policy ID Covered libertarian ID Covered libertarian's relationship to mckeon Policy Mckeon Plan Information [place] Med[place] B [id number] Self 5 [id number] [place] Med[place]ap Part B [id number] Self 5 [id number] [place] Med[place]ap Part B [id number] 2.16.840.1.948628.3.227.99.991.18857.0 Self 5 [id number] [place] Medigap Part B [id number] MRN.[id number] Self [id number] [place] Med[place]ap Part B [id number] MRN.991.[id number] Self [id number] [place] Med[place]ap Part B [id number] 2.16.840.1.665291.3.227.99.991.54559.0 Self 5 [id number] [place] Med[place]ap Part B [id number] 2.16.840.1.521807.3.227.99.991.71263.0 Self 5 [id number] [place] Med[place]ap Part B [id number] Self Medicare [place] Med[place]ap Part B [id number] 2.16.840.1.883281.3.227.99.991.44532.0 Self 5 [id number] [place] Med[place]ap Part B [id number] 2.16.840.1.390221.3.227.99.991.28579.0 Self 5 [id number] [place] Med[place]ap Part B [id number] 2.16840.1.879828.3.227.99.991.42297.0 Self 5 [id number] Medicare C [id number] SELF [id number] A BS [place] Medigap Part B [id number] Self BS [place] Medigap Part B [id number] MRN.991.[id number] Self [id number] [employer] Medigap Part B [id number] Self [employer] Medigap Part B [id number] MRN.991.[id number] Self [id number] [employer] Medigap Part B [id number] 2.0.1.010391.3.227. 99.991.46836.0 Self [id number] [employer] Medigap Part B [id number] MRN.991.[id number] Self [id number] [employer] Medigap Part B [id number] 2.0.1.182909.3.227. 99.991.72915.0 Self [id number] [employer] Medigap Part B [id number] 2.0.1.119225.3.227. 99.991.63371.0 Self [id number] [employer] Medigap Part B 843850843 MRN.991.[id number] Self [id number] [employer] Medigap Part B [id number] 2.0.1.260944.3.227. 99.991.43108.0 Self [id number] [employer] Medigap Part B [id number] 2.0.1.225936.3.227. 99.991.38246.0 Self [id number] [employer] Medigap Part B 982311 Self [employer] Medigap Part B [id number] 2.0.1.567580.3.227. 99.991.06957.0 Self [id number] [employer] Medigap Part B [id number] 2.0.1.114726.3.227. 99.991.95212.0 Self [id number] [employer] Medigap Part B [id number] 2.0.1.402603.3.227. 99.991.89990.0 Self [id number] [employer] Medigap Part B [id number] 2.0.1.417200.3.227. 99.991.66759.0 Self [id number] [employer] Medigap Part B [id number] MRN.991.[id number] Self [id number] [employer] Medigap Part B [id number] 2.160.1.939349.3.227. 99.991.88131.0 Self [id number] [employer] Medigap Part B [id number] 2.0.1.466179.3.227. 99.991.54975.0 Self [id number] [employer] Medigap Part B 683964427 2.0.1.076547.3.227. 99.991.95952.0 Self [id number] [employer] Medigap Part B [id number] 2.0.1.599605.3.227. 99.991.74166.0 Self [id number] [employer] Medigap Part B [id number] MRN.991.[id number] Self [id number] [employer] Medigap Part B 661086947 2.0.1.329386.3.227. 99.991.92374.0 Self [id number] [employer] Medigap Part B 858524268 2.0.1.525805.3.227. 99.991.23839.0 Self [id number] [employer] Commercial [id number] Self [employer] Medigap Part B [id number] 2.0.1.175194.3.227. 99.991.12950.0 Self [id number] Blue Shield MCR Advantage Medigap Part B 859262 Self Blue Shield MCR Advantage Medigap Part B [id number] 2.0.1.702405.3.227.99.991.14207.0 Self V [id number] Blue Shield MCR Advantage Medigap Part B [id number] 2.0.1.058328.3.227.99.991.80835.0 Self V [id number] Blue Shield MCR Advantage Medigap Part B [id number] 2.16840.1.838645.3.227.99.991.53694.0 Self V [id number] Blue Shield MCR Advantage Medigap Part B [id number] 2.16840.1.754174.3.227.99.991.38488.0 Self V [id number] Blue Shield MCR Advantage Medigap Part B [id number] MRN.991.[id number] Self [id number] Blue Shield MCR Advantage Medigap Part B [id number] 2.0.1.405851.3.227.99.991.78947.0 Self V [id number] Blue Shield MCR Advantage Medigap Part B [id number] 2.0.1.809857.3.227.99.991.55598.0 Self V [id number] Blue Shield MCR Advantage Medigap Part B [id number] 2.0.1.491722.3.227.99.991.80736.0 Self V [id number] Blue Shield MCR Advantage Medigap Part B [id number] MRN.991.[id number] Self [id number] Blue Shield MCR Advantage Medigap Part B [id number] 2.0.1.760179.3.227.99.991.83990.0 Self V [id number] [employer] Medicare F [id number] SELF [id number] Medicare [place] Medicare Primary [id number] MRN.991.[id number] Self [id number] [facility] Medigap Part B [id number] MRN.991.[id number] Self [id number] [facility] [facility] Medigap Part B [id number] MRN.991.[id number] Self [id number] Medicare [place] Medicare Primary [id number] MRN.991.[id number] Self [id number] [facility] [facility] Options Medigap Part B [id number] 2.0.1.748391.3.227.99.991.02104.0 Self 0 [id number] Medicare [place] Medicare Primary [id number] 2.840.1.683453.3.227.99.991.58005.0 Self 5 [id number] [facility] Options Medigap Part B [id number] 2.0.1.031685.3.227.99.991.51490.0 Self 0 [id number] Medicare [place] Medicare Primary [id number] 2.0.1.413458.3.227.99.991.27586.0 Self 5 [id number] [facility] Options Medigap Part B [id number] 2.0.1.377674.3.227.99.991.96657.0 Self 0 [id number] Medicare [place] Medicare Primary [id number] 2.840.1.790690.3.227.99.991.55764.0 Self 5 [id number] [facility] Options Medigap Part B [id number] 2.0.1.049817.3.227.99.991.13563.0 Self 0 [id number] Medicare [place] Medicare Primary [id number] 2.840.1.957280.3.227.99.991.53622.0 Self 5 [id number] [facility] AARP Supplemental F [id number] SELF [id number] [facility] Options Medigap Part B [id number] 2.0.1.043924.3.227.99.991.85942.0 Self 0 [id number] Medicare [place] Medicare Primary [id number] 2.840.1.443506.3.227.99.991.76086.0 Self 5 [id number] [facility] Options Medigap Part B [id number] 2.16840.1.161800.3.227.99.991.54861.0 Self 0 [id number] Medicare [place] Medicare Primary [id number] 2.840.1.908741.3.227.99.991.59701.0 Self 5 [id number] [facility] Medigap Part B [id number] 2.0.1.825538.3.227.99.991.22430.0 Self 0 [id number] Medicare [place] Medicare Primary [id number] 2.0.1.195226.3.227.99.991.97571.0 Self 5 [id number] [facility] Options Medigap Part B [id number] 2.0.1.988899.3.227.99.991.94798.0 Self 0 [id number] Medicare [place] Medicare Primary [id number] 2.0.1.631072.3.227.99.991.50508.0 Self 5 [id number] MEDICARE [id number] SP [id number] V58 MEDICARE [id number] SP [id number] A DME Jurisdiction A [facility] C [id number] SELF [id number] [facility] AARP Supplemental F [id number] SELF [id number] Medicare C [id number] SELF [id number] A [employer] Medigap Part B [id number] 2.0.1.265072.3.227. 99.991.69927.0 Self [id number] AARP O [id number] S [id number] Medicare Dme Supplies Medigap Part B [id number] 2.0.1.477285.3.227.99.991.59990.0 Self 5 [id number] MEDICARE C [id number] S [id number] V58 Medicare [place] Medigap Part B [id number] 2.0.1.409654.3.227.99.991.82410.0 Self 5 [id number] Medicare [place] Medigap Part B [id number] 2.0.1.865689.3.227.99.991.73972.0 Self 5 [id number] Medicare Dme Supplies [facility] Part B [id number] 2.0.1.978539.3.227.99.991.24524.0 Self 5 [id number] [facility] [id number] 2.0.1.362518.3.227. 99.991.37512.0 Self [id number] Medicare [place] Medigap Part B [id number] 2.0.1.447681.3.227.99.991.50223.0 Self 5 [id number] [facility] Options [facility] Part B [id number] 2.0.1.555591.3.227. 99.991.42346.0 Self [id number] NGS MEDICARE MASS O [id number] S [id number] Medicare Dme Supplies [facility] Part B [id number] 2.0.1.632775.3.227.99.991.26607.0 Self 5 [id number] SELF PAY ONLY [id number] SP [id number] Medicare [place] Medigap Part B [id number] 2.0.1.352269.3.227.99.991.53758.0 Self 5 [id number] Medicare Natl Gov't Servi Medicare Primary [id number] MRN.1767.[id number] Self [id number] [facility] Options [facility] Part B [id number] MRN.[id number] Self [id number] Medicare Dme Supplies Medigap Part B [id number] MRN.991.[id number] Self [id number] [employer] Medigap Part B 717817599 MRN.991.[id number] Self [id number] [employer] Medigap Part B 722007016 .1.951956.3.227. 99.991.75163.0 Self [id number] [facility] OPTIONS [id number] SP [id number] Medicare Dme Supplies Medigap Part B 130482512H .1.109405.3.227.99.991.28911.0 Self 5 [id number] [employer] Options Commercial [id number] Self Medicare [facility] Medigap Part B [id number] .1.575420.3.227.99.991.07408.0 Self 5 [id number] Medicare [facility] Medigap Part B [id number] MRN.991.[id number] Self [id number] MEDICARE [id number] Medicare Dme Supplies Medigap Part B [id number] MRN.991.[id number] Self [id number] [employer] Medigap Part B 216799459 MRN.991.[id number] Self [id number] [employer] Medigap Part B 480836237 .1.139244.3.227. 99.991.17818.0 Self [id number] TODA[employer] OPTIONS/PRYDEINIG P [id number] S [id number] Medicare Dme Supplies Medigap Part B [id number] .1.862334.3.227.99.991.10890.0 Self 5 [id number] [facility] [id number] ..1.898252.3.227.99.1767.81000.0 Self [id number] Medicare Natl Gov't Servi Medicare Primary [id number] 2.0.1.918702.3.227.99.1767.04794.0 Self [id number] TODA[employer] OPTIONS [id number] SP [id number] [place] Medigap Part B [id number] ..1.934586.3.227.99.991.02987.0 Self 5 [id number] Medicare Dme Supplies Medigap Part B [id number] ..1.662638.3.227.99.991.57643.0 Self 5 [id number] [facility] Options [facility] [id number] ..1.274356.3.227. 99.991.23812.0 Self [id number] [place] Medigap Part B 391682 Self MEDICARE C [id number] S [id number] A [place] Medigap Part B [id number] MRN.991.[id number] Self [id number] [facility] Options [facility] [id number] .1.400155.3.227. 99.991.48344.0 Self [id number] Medicare Dme Supplies Medigap Part B [id number] ..1.958412.3.227.99.991.82366.0 Self 5 [id number] [place] Medigap Part B [id number] ..1.841507.3.227.99.991.09605.0 Self 5 [id number] Medicare [place] Medigap Part B [id number] 2..1.246693.3.227.99.991.42571.0 Self 5 [id number] Medicare Dme Supplies Medigap Part B [id number] 2.840.1.733903.3.227.99.991.77713.0 Self 5 [id number] [employer] Medigap Part B 350651794 2.16840.1.505404.3.227. 99.991.50753.0 Self [id number] Problems, Conditions, and Diagnoses No Information Surgeries/Procedures Procedure Description Date Indications Data Source(s) ARTHROCENTESIS ASPIR&/INJECTION MAJOR JT/BURSA 12:00:00 AM EDT MEDENT ([facility]) ARTHROCENTESIS ASPIR&/INJECTION MAJOR JT/BURSA 12:00:00 AM EDT [facility] ([facility] ) Results ID Date Data Source [id number] 05/21/2020 12:00:00 AM EST [facility] Name Value Range Interpretation Code Description Data Nanette rce(s) Supporting Document(s) SARS-CoV-2 (COVID-19) RNA [Presence] in Respiratory specimen by SARK[facility] with probe detection Not Detected [facility] This lab was ordered by [facility] and reported by [email or web address] Procedure Social History No Information
[2021-02-21] MEDS ORDERED: FARX1TAB5 PO (16:18)
[2021-02-21] MEDS ORDERED: EPLE50TA PO (16:18)
[2021-02-21] MEDS ORDERED: BUME1TAB3 PO (16:18)
[2021-02-21] MEDS ORDERED: HYDR-3910 PO (16:18)
[2021-02-21 22:03] VITALS: BP 121/93
[2021-02-21 23:23] LABS: BASO % 0.3 % (0.0-1.0); EOS # 0.2 10^3/uL (0.0-0.5); EOS % 2.3 % (0.0-3.0); HEMATOCRIT 36.9 % (42.0-52.0); HEMOGLOBIN 12.3 g/dl (13.5-17.5); LYMPH # 3.2 10^3/uL (1.5-5.0); LYMPH % 45.1 % (24.0-44.0); MEAN CORPUSCULAR HEMOGLOBIN 30.7 pg (27.0-33.0); MEAN CORPUSCULAR HGB CONC 33.3 g/dl (32.0-36.5); MONO # 0.6 10^3/uL (0.0-0.8); NEUTROPHILS % 42.7 % (36.0-66.0); PLATELET COUNT, AUTOMATED 143 10^3/uL (150-450); RED BLOOD COUNT 4.01 10^6/uL (4.30-6.10)
--- OUTSIDE RECORDS SUMMARY | 2021-02-21 23:53 | CCD ---
Author Author [facility] Organization [facility] Address Unknown Phone Unavailable Support Name Relationship Address Phone DAVID VITAL Next Of Kin [address] [place] [address] [place] [address] [place] [address] YRIS VITAL Next Of [facility] [address] [place] [address] DAVID VITAL ECON [address] [place] [address] [phone] Re-disclosure Warning The records that you are [...] is protected by Article 27-F of the [place] State Public Health law. If you continue you may have access to information: Regarding HIV / AIDS; Provided by facilities licensed or operated by the [facility] Office of Mental Health; or Provided by the [facility] Office for People With Developmental Disabilities. If such information is present, then the following [facility] mandated warning applies: This information has been [...] law may result in a fine or [place] health [place] sentence or both. A general authorization for [...] Providers Location Date Indications Data Source(s ) [facility] Dermatology [address] [place] [address] 07/01/2020 12:00:00 AM EST eCW1 ([facility]) Immunizations Vaccine Date Status Description Data Source(s) COVID-19 VACC,MRNA(MODERNA)/PF 09/24/2020 12:00:00 AM EDT completed [facility] COVID-19 VACCINE Moderna 09/24/2020 12:00:00 AM EDT completed [facility] Vaccine Series Complete: YESThis Data wa s Submitted to [facility] Via [facility] system master. COVID-19 VACCINE Moderna 08/26/2020 12:00:00 AM EDT completed [facility] Vaccine Series Complete: NOThis Data was Submitted to [facility] Via [facility] system master. COVID-19 VACC,MRNA(MODERNA)/PF 08/26/2020 12:00:00 AM EDT completed [facility] INFLUENZA VIRUS VACCINE QUADRIVAL SPLIT 2019-(65 YR UP)/PF 01/16/2020 12:00:00 AM EDT completed [facility] Medications No Information Insurance Providers Payer name Policy type / Coverage type Policy ID Covered alliance party ID Covered alliance party's relationship to mckeon Policy Mckeon Plan Information [place] Med[place]ap Part B [id number] .[id number] Self 5 [id number] Medicare [place] Medigap Part B [id number] Self 5 [id number] Medicare [place] Medigap Part B [id number] 2.16.840.1.102738.3.227.99.991.21827.0 Self 5 [id number] Medicare [place] Medigap Part B [id number] MRN.991.[id number] Self [id number] Medicare [place] Medigap Part B [id number] MRN.991.[id number] Self [id number] [place] Medigap Part B [id number] 2.16.840.1.690185.3.227.99.991.94269.0 Self 5 [id number] [place] Medigap Part B [id number] 2.16.840.1.930411.3.227.99.991.32991.0 Self 5 [id number] [place] Medigap Part B [id number] Self Medicare [place] Medigap Part B [id number] 2.16.840.1.844802.3.227.99.991.41240.0 Self 5 [id number] Medicare [place] Medigap Part B [id number] 2.16.840.1.338596.3.227.99.991.64486.0 Self 5 [id number] Medicare [place] Medigap Part B [id number] 2.16840.1.662898.3.227.99.991.83209.0 Self 5 [id number] Medicare C [id number] SELF [id number] A [facility] [place] Medigap Part B [id number] Self BS [place] Medigap Part B [id number] MRN.991.[id number] Self [id number] [employer] Medigap Part B 359259 Self [employer] Medigap Part B [id number] MRN.991.[id number] Self [id number] [employer] Medigap Part B [id number] 2.0.1.782626.3.227. 99.991.85053.0 Self [id number] [employer] Medigap Part B [id number] MRN.991.[id number] Self [id number] [employer] Medigap Part B [id number] 2.0.1.795665.3.227. 99.991.93653.0 Self [id number] [employer] Medigap Part B [id number] 2.0.1.530721.3.227. 99.991.94501.0 Self [id number] [employer] Medigap Part B [id number] MRN.991.[id number] Self [id number] [employer] Medigap Part B [id number] 2.0.1.704831.3.227. 99.991.16322.0 Self [id number] [employer] Medigap Part B [id number] 2.0.1.519441.3.227. 99.991.37344.0 Self [id number] [employer] Medigap Part B 718487 Self [employer] Medigap Part B [id number] 2.0.1.229979.3.227. 99.991.13887.0 Self [id number] [employer] Medigap Part B [id number] 2.0.1.336030.3.227. 99.991.13553.0 Self [id number] [employer] Medigap Part B [id number] 2.0.1.418867.3.227. 99.991.26608.0 Self [id number] [employer] Medigap Part B 230489076 2.0.1.121949.3.227. 99.991.32689.0 Self [id number] [employer] Medigap Part B [id number] MRN.991.[id number] Self [id number] [employer] Medigap Part B [id number] 2.160.1.303561.3.227. 99.991.07314.0 Self [id number] [employer] Medigap Part B [id number] 2.0.1.441917.3.227. 99.991.31693.0 Self [id number] [employer] Medigap Part B [id number] 2.0.1.049130.3.227. 99.991.88065.0 Self [id number] [employer] Medigap Part B [id number] 2.0.1.078980.3.227. 99.991.83928.0 Self [id number] [employer] Medigap Part B [id number] MRN.991.[id number] Self [id number] [employer] Medigap Part B [id number] 2.0.1.769338.3.227. 99.991.97318.0 Self 336849915 [employer] Medigap Part B 645511184 2.0.1.094641.3.227. 99.991.61301.0 Self [id number] [employer] Commercial 468992 Self [employer] Medigap Part B [id number] 2.0.1.820064.3.227. 99.991.48930.0 Self [id number] Blue Shield MCR Advantage Medigap Part B 315451 Self Blue Shield MCR Advantage Medigap Part B [id number] 2.0.1.119562.3.227.99.991.70036.0 Self V [id number] Blue Shield MCR Advantage Medigap Part B [id number] 2.0.1.325418.3.227.99.991.29566.0 Self V [id number] Blue Shield MCR Advantage Medigap Part B [id number] 2.16840.1.595856.3.227.99.991.75140.0 Self V [id number] Blue Shield MCR Advantage Medigap Part B [id number] 2.16840.1.531815.3.227.99.991.42774.0 Self V [id number] Blue Shield MCR Advantage Medigap Part B [id number] MRN.991.[id number] Self [id number] Blue Shield MCR Advantage Medigap Part B [id number] 2.0.1.495640.3.227.99.991.36259.0 Self V [id number] Blue Shield MCR Advantage Medigap Part B [id number] 2.0.1.703635.3.227.99.991.58705.0 Self V [id number] Blue Shield MCR Advantage Medigap Part B [id number] 2.0.1.524721.3.227.99.991.75201.0 Self V [id number] Blue Shield MCR Advantage Medigap Part B [id number] MRN.991.[id number] Self [id number] Blue Shield MCR Advantage Medigap Part B [id number] 2.0.1.522687.3.227.99.991.57649.0 Self V [id number] [employer] Medicare F [id number] SELF [id number] Medicare [place] Medicare Primary [id number] MRN.991.[id number] Self [id number] [facility] Medigap Part B [id number] MRN.991.[id number] Self [id number] [facility] Medigap Part B [id number] MRN.991.[id number] Self [id number] Medicare [place] Medicare Primary [id number] MRN.991.[id number] Self [id number] [facility] Options Medigap Part B [id number] 2.0.1.750713.3.227.99.991.21641.0 Self 0 [id number] Medicare [place] Medicare Primary [id number] 2.840.1.325590.3.227.99.991.42440.0 Self 5 [id number] [facility] Options Medigap Part B [id number] 2.0.1.910418.3.227.99.991.19487.0 Self 0 [id number] Medicare [place] Medicare Primary [id number] 2.0.1.503121.3.227.99.991.76431.0 Self 5 [id number] [facility] Options Medigap Part B [id number] 2.0.1.554566.3.227.99.991.36205.0 Self 0 [id number] Medicare [place]state Medicare Primary [id number] 2.840.1.557813.3.227.99.991.97607.0 Self 5 [id number] [facility] Options Medigap Part B [id number] 2.0.1.326560.3.227.99.991.04799.0 Self 0 [id number] Medicare [place] Medicare Primary [id number] 2.840.1.216584.3.227.99.991.28267.0 Self 5 [id number] [facility] AARP Supplemental F [id number] SELF [id number] [facility] Options Medigap Part B [id number] 2.0.1.725881.3.227.99.991.17139.0 Self 0 [id number] Medicare [place] Medicare Primary [id number] 2.840.1.556167.3.227.99.991.67999.0 Self 5 [id number] [facility] Options Medigap Part B [id number] 2.16840.1.788174.3.227.99.991.57426.0 Self 0 [id number] Medicare [place] Medicare Primary [id number] 2.840.1.707812.3.227.99.991.15348.0 Self 5 [id number] [facility] Medigap Part B [id number] 2.0.1.843904.3.227.99.991.07315.0 Self 0 [id number] Medicare [place] Medicare Primary [id number] 2.0.1.486912.3.227.99.991.16049.0 Self 5 [id number] [facility] Options Medigap Part B [id number] 2.0.1.212497.3.227.99.991.28470.0 Self 0 [id number] Medicare [place] Medicare Primary [id number] 2.0.1.627497.3.227.99.991.55446.0 Self 5 [id number] MEDICARE [id number] SP [id number] V58 MEDICARE [id number] SP [id number] A DME Jurisdiction A [facility] C [id number] SELF [id number] [facility] AARP Supplemental F [id number] SELF [id number] Medicare C [id number] SELF [id number] A [employer] Medigap Part B [id number] 2.0.1.153864.3.227. 99.991.29053.0 Self [id number] AARP O [id number] S [id number] Medicare Dme Supplies Medigap Part B [id number] 2.0.1.543574.3.227.99.991.73482.0 Self 5 [id number] MEDICARE C [id number] S [id number] V58 Medicare [place] Medigap Part B [id number] 2.0.1.955292.3.227.99.991.07704.0 Self 5 [id number] Medicare [place] Medigap Part B [id number] 2.0.1.750659.3.227.99.991.26286.0 Self 5 [id number] Medicare Dme Supplies [facility] Part B [id number] 2.0.1.329235.3.227.99.991.22663.0 Self 5 [id number] [facility] [id number] 2.0.1.417318.3.227. 99.991.97097.0 Self [id number] Medicare [place] Medigap Part B [id number] 2.0.1.748052.3.227.99.991.14491.0 Self 5 [id number] [facility] Options [facility] Part B [id number] 2.0.1.963746.3.227. 99.991.87583.0 Self [id number] NGS MEDICARE MASS O [id number] S [id number] Medicare Dme Supplies [facility] Part B [id number] 2.0.1.665795.3.227.99.991.99441.0 Self 5 [id number] SELF PAY ONLY [id number] SP [id number] Medicare [place] Medigap Part B [id number] 2.0.1.005464.3.227.99.991.94055.0 Self 5 [id number] Medicare Natl Gov't Servi Medicare Primary [id number] MRN.1767.[id number] Self [id number] [facility] Options [facility] Part B [id number] MRN.[id number] Self [id number] Medicare Dme Supplies Medigap Part B [id number] MRN.991.[id number] Self [id number] [employer] Medigap Part B 321297664 MRN.991.[id number] Self [id number] [employer] Medigap Part B 114250915 .1.528059.3.227. 99.991.11942.0 Self [id number] [facility] OPTIONS [id number] SP [id number] Medicare Dme Supplies Medigap Part B [id number] .1.689169.3.227.99.991.30543.0 Self 5 [id number] [employer]'s Options Commercial [id number] Self Medicare [facility] Medigap Part B [id number] .1.596302.3.227.99.991.12060.0 Self 5 [id number] Medicare [facility] Medigap Part B [id number] MRN.991.[id number] Self [id number] MEDICARE [id number] [id number] Medicare Dme Supplies Medigap Part B [id number] MRN.991.[id number] Self [id number] [employer] Medigap Part B 275493531 MRN.991.[id number]-[id number] Self [id number] [employer] Medigap Part B 324806773 .1.032851.3.227. 99.991.22300.0 Self [id number] [facility] OPTIONS/GABONESE P [id number] S [id number] Medicare Dme Supplies Medigap Part B [id number] .1.335111.3.227.99.991.48807.0 Self 5 [id number] [facility] [id number] ..1.335944.3.227.99.1767.34734.0 Self [id number] Medicare Natl Gov't Servi Medicare Primary [id number] 2.0.1.777774.3.227.99.1767.53721.0 Self [id number] TODA[employer] OPTIONS [id number] SP [id number] Medicare [place] Medigap Part B [id number] ..1.101370.3.227.99.991.03576.0 Self 5 [id number] Medicare Dme Supplies Medigap Part B [id number] ..1.629851.3.227.99.991.87692.0 Self 5 [id number] [facility] [id number] ..1.982419.3.227. 99.991.42852.0 Self [id number] Medicare [place] Medigap Part B [id number] Self MEDICARE C [id number] S [id number] A Medicare [place] Medigap Part B [id number] MRN.991.[id number] Self [id number] [facility] Options [facility] [id number] .1.757660.3.227. 99.991.48180.0 Self [id number] Medicare Dme Supplies Medigap Part B [id number] ..1.263648.3.227.99.991.88466.0 Self 5 [id number] Medicare [place] Medigap Part B [id number] ..1.481956.3.227.99.991.49745.0 Self 5 [id number] Medicare [place] Medigap Part B [id number] 2..1.960831.3.227.99.991.96570.0 Self 5 [id number] Medicare Dme Supplies Medigap Part B [id number] 2.840.1.810069.3.227.99.991.41473.0 Self 5 [id number] [employer] Medigap Part B [id number] 2.16840.1.542611.3.227. 99.991.53725.0 Self [id number] Problems, Conditions, and Diagnoses No Information Surgeries/Procedures Procedure Description Date Indications Data Source(s) ARTHROCENTESIS ASPIR&/INJECTION MAJOR JT/BURSA 12:00:00 AM EDT [facility] ([facility]) ARTHROCENTESIS ASPIR&/INJECTION MAJOR JT/BURSA 12:00:00 AM EDT [facility] ([facility] ) Results ID Date Data Source [id number] 05/21/2020 12:00:00 AM EST [facility] Name Value Range Interpretation Code Description Data Nanette rce(s) Supporting Document(s) SARS-CoV-2 (COVID-19) RNA [Presence] in Respiratory specimen by SARKIS with probe detection Not Detected [facility] This lab was ordered by [facility] and reported by [employer]. Procedure Social History No Information
[2021-02-22] MEDS ORDERED: LOPE2TAB14 PO (00:21)
[2021-02-22] MEDS ORDERED: LOPE2CAP PO (00:26)
== END 2021-02-22 00:31 | disposition home or self-care (01) ==
LOC: M ED 16:10
DX: R19.7 Diarrhea, unspecified (principal); R11.10 Vomiting, unspecified; I10 Essential (primary) hypertension; E11.9 Type 2 diabetes mellitus without complications; N28.9 Disorder of kidney and ureter, unspecified; E03.9 Hypothyroidism, unspecified; E78.00 Pure hypercholesterolemia, unspecified; Z79.899 Other long term (current) drug therapy; Z79.890 Hormone replacement therapy

== ENCOUNTER → 2021-02-27 | Outpatient (REF) | payer MEDICARE ==
[~2021-02-27] MED LIST changes: +BUME1TAB3 PO; +EPLE50TA PO; +FARX1TAB5 PO; +HYDR-3910 PO; +LOPE2CAP PO; +LOPE2TAB14 PO
== END ==
LOC: M LAB REF 11:24
PROVIDERS: ATTEND Internal Medicine Nephrology
DX: R19.7 Diarrhea, unspecified (principal)

== ENCOUNTER → 2021-07-24 | Outpatient (CLI) | payer MEDICARE | LOC: M RAD 10:25 | PROVIDERS: ATTEND Family Medicine | DX: J44.9 Chronic obstructive pulmonary disease, unspecified (principal) ==

== ENCOUNTER → 2021-08-07 | Outpatient (REF) | payer MEDICARE ==
[2021-08-07 18:09] LABS: FREE T4 1.28 NG/DL (0.76-1.46); THYROID STIMULATING HORMONE 0.56 uIU/ML (0.358-3.740)
== END ==
LOC: M LAB REF 16:58
PROVIDERS: ATTEND Internal Medicine Nephrology
DX: E03.9 Hypothyroidism, unspecified (principal)

== ENCOUNTER 2021-09-09 16:03 | Inpatient (IN) | payer MEDICARE ==
[~2021-09-09] VITALS: Ht 175.3 cm; Wt 75.9 kg
[2021-09-09 16:58] LABS: VENOUS HCO3 18.9 MEQ/L (23.0-27.0); VENOUS O2 SATURATION 94.8 % (60.0-80.0); VENOUS PARTIAL PRESSURE CO2 39.4 mmHg (38.0-50.0); VENOUS PARTIAL PRESSURE O2 79.5 mmHg (30.0-50.0); VENOUS PH 7.299 UNITS (7.330-7.430); VENOUS STANDARD HCO3 18.7 MEQ/L; VENOUS TOTAL CO2 20.1 MEQ/L (24.0-28.0)
[2021-09-09 17:03] LABS: BASO % 0.6 % (0.0-1.0); EOS # 0.2 10^3/uL (0.0-0.5); EOS % 3.9 % (0.0-3.0); HEMATOCRIT 30.2 % (42.0-52.0); HEMOGLOBIN 10.1 g/dl (13.5-17.5); LYMPH # 2.5 10^3/uL (1.5-5.0); LYMPH % 46.4 % (24.0-44.0); MEAN CORPUSCULAR HEMOGLOBIN 31.4 pg (27.0-33.0); MEAN CORPUSCULAR HGB CONC 33.4 g/dl (32.0-36.5); MEAN CORPUSCULAR VOLUME 93.8 fl (80.0-96.0); MONO # 0.6 10^3/uL (0.0-0.8); MONO % 10.8 % (2.0-8.0); NEUTROPHILS # 2.1 10^3/uL (1.5-8.5); NEUTROPHILS % 38.1 % (36.0-66.0); PLATELET COUNT, AUTOMATED 124 10^3/uL (150-450); RED BLOOD COUNT 3.22 10^6/uL (4.30-6.10); WHITE BLOOD COUNT 5.4 10^3/uL (4.0-10.0)
[2021-09-09 17:31] LABS: ALBUMIN 2.7 GM/DL (3.2-5.2); BILIRUBIN,DIRECT 0.2 MG/DL (0.0-0.2); BILIRUBIN,TOTAL 0.3 MG/DL (0.2-1.0); CALCIUM LEVEL 8.6 MG/DL (8.8-10.2); CREATININE FOR GFR 2.68 MG/DL (0.70-1.30); GLOMERULAR FILTRATION RATE 24.5 (>35); POTASSIUM SERUM 4.3 MEQ/L (3.5-5.1); TOTAL PROTEIN 6.4 GM/DL (6.4-8.2)
[2021-09-09] MEDS ORDERED: METOPROLOL TART 50 MG TAB PO ONE (20:00)
[2021-09-09] MEDS ORDERED: METOPROLOL 5 MG/5 ML VIAL IV PRN (20:00)
[2021-09-09] MEDS ORDERED: cefTRIAXone SOD 2 GM in D5W MINI-BAG PLUS 50 ML IV ONE (20:25)
[2021-09-09] MEDS ORDERED: AZITHROMYCIN 250MG TABLET PO ONE (20:25)
[2021-09-09] MEDS: HumaLOG INSULIN (NovoLOG) PER UNIT SC SCH (21:00)
[2021-09-09] MEDS ORDERED: ASPIRIN 81 MG CHEW TABLET PO STA (21:36)
[2021-09-09] MEDS ORDERED: GLUCOSE 4GM CHEW TABLET PO PRN (21:40)
[2021-09-09] MEDS ORDERED: ACETAMINOPHEN TAB 650MG DOSE (2X325MG) PO PRN (21:40)
[2021-09-09] MEDS ORDERED: NITROGLYCERIN 0.4 MG SUBL TABLET SL PRN (21:40)
[2021-09-09] MEDS ORDERED: GLUCAGON INJ 1MG VIAL SC PRN (21:40)
[2021-09-09] MEDS ORDERED: DEXTROSE 50% 50 ML SYRINGE IV PRN (21:40)
[2021-09-09] MEDS ORDERED: LANTINJ4 SC (22:48)
[2021-09-09] MEDS ORDERED: HYDR-3910 PO (22:48)
[2021-09-09] MEDS ORDERED: MONT10TA97 PO (22:48)
[2021-09-09] MEDS ORDERED: FERR1TAB8 PO (22:48)
[2021-09-09] MEDS ORDERED: FARX1TAB3 PO (22:48)
[2021-09-09] MEDS ORDERED: CIAL5TAB PO (22:48)
[2021-09-09] MEDS ORDERED: BUME1TAB3 PO (22:48)
[2021-09-09] MEDS ORDERED: HOME MED LIST COMPLETE! XX SCH (22:55)
[2021-09-09] MEDS ORDERED: **hydrALAZINE** 50 MG TAB PO ONE (23:50)
[2021-09-10] MEDS ORDERED: PILL CUTTER 1 EACH XX ONE ×2 (03:41→10:04)
[2021-09-10 06:17] LABS: HEMATOCRIT 32.7 % (42.0-52.0); HEMOGLOBIN 11.2 g/dl (13.5-17.5); MEAN CORPUSCULAR HEMOGLOBIN 31.1 pg (27.0-33.0); MEAN CORPUSCULAR HGB CONC 34.3 g/dl (32.0-36.5); MEAN CORPUSCULAR VOLUME 90.8 fl (80.0-96.0); PLATELET COUNT, AUTOMATED 124 10^3/uL (150-450); WHITE BLOOD COUNT 7.5 10^3/uL (4.0-10.0)
[2021-09-10 06:40] LABS: CALCIUM LEVEL 8.6 MG/DL (8.8-10.2); CREATININE FOR GFR 2.75 MG/DL (0.70-1.30); GLOMERULAR FILTRATION RATE 23.8 (>35); POTASSIUM SERUM 4.3 MEQ/L (3.5-5.1)
[2021-09-10] MEDS: HumaLOG INSULIN (NovoLOG) PER UNIT SC SCH ×4 (07:30→20:39)
[2021-09-10] MEDS: HEPARIN SOD (PORCINE) 5000UNITS/ML 1ML VIAL/SYRINGE SC SCH ×2 (09:59→20:45)
[2021-09-10] MEDS: ASPIRIN 81 MG CHEW TABLET PO SCH (10:00)
[2021-09-10] MEDS: AZITHROMYCIN 250MG TABLET PO SCH (10:01)
[2021-09-10 15:29] VITALS: BP 136/72
[2021-09-10 20:17] VITALS: BP 137/65
[2021-09-10] MEDS: **hydrALAZINE HCL** 25 MG TAB PO SCH (20:46)
[2021-09-10] MEDS ORDERED: cefTRIAXone SOD 1 GM in D5W MINI-BAG PLUS 50 ML IV SCH (21:00)
[2021-09-11 06:00] VITALS: BP 128/65
[2021-09-11] MEDS: LEVOTHYROXINE 100MCG TABLET (0.1MG) PO SCH (06:23)
[2021-09-11 06:43] LABS: HEMATOCRIT 32.8 % (42.0-52.0); MEAN CORPUSCULAR HEMOGLOBIN 30.9 pg (27.0-33.0); MEAN CORPUSCULAR HGB CONC 33.5 g/dl (32.0-36.5); MEAN CORPUSCULAR VOLUME 92.1 fl (80.0-96.0); PLATELET COUNT, AUTOMATED 141 10^3/uL (150-450); RED BLOOD COUNT 3.56 10^6/uL (4.30-6.10); WHITE BLOOD COUNT 9.3 10^3/uL (4.0-10.0)
[2021-09-11 07:12] LABS: CALCIUM LEVEL 8.4 MG/DL (8.8-10.2); CREATININE FOR GFR 3.36 MG/DL (0.70-1.30); GLOMERULAR FILTRATION RATE 18.9 (>35); POTASSIUM SERUM 4.1 MEQ/L (3.5-5.1)
[2021-09-11] MEDS ORDERED: BUMETANIDE 1 MG TAB PO SCH (09:00)
[2021-09-11] MEDS ORDERED: BUMETANIDE 1MG/4ML VIAL IV SCH (09:00)
[2021-09-11] MEDS: allopurinoL 100 MG TAB PO SCH (09:40)
[2021-09-11] MEDS: ASPIRIN 81 MG CHEW TABLET PO SCH (09:41)
[2021-09-11] MEDS: MONTELUKAST 10 MG TAB PO SCH (09:41)
[2021-09-11] MEDS: FERROUS SULFATE 325MG TAB PO SCH (09:41)
[2021-09-11] MEDS: FENOFIBRATE 48MG TABLET (TRICOR) PO SCH (09:41)
[2021-09-11] MEDS: AZITHROMYCIN 250MG TABLET PO SCH (09:41)
[2021-09-11] MEDS: HumaLOG INSULIN (NovoLOG) PER UNIT SC SCH ×4 (09:41→20:02)
[2021-09-11] MEDS: SIMVASTATIN 40 MG TAB PO SCH (09:41)
[2021-09-11] MEDS: **hydrALAZINE HCL** 25 MG TAB PO SCH (09:42)
[2021-09-11] MEDS: HEPARIN SOD (PORCINE) 5000UNITS/ML 1ML VIAL/SYRINGE SC SCH ×2 (09:42→20:02)
[2021-09-11] MEDS: BUMETANIDE 1MG/4ML VIAL IV SCH ×2 (09:42→17:45)
[2021-09-11] MEDS: amLODIPine 5 MG TAB PO SCH (09:43)
[2021-09-11] MEDS: METOPROLOL SUCC *XL* 25MG TAB (TopROL *XL*) PO SCH (09:43)
[2021-09-11 14:00] VITALS: BP 134/64
[2021-09-11] MEDS ORDERED: LevoFLOXacin 750 MG TABLET PO ONE (14:00)
[2021-09-11 16:59] VITALS: BP 137/62
[2021-09-11 18:45] VITALS: BP 122/70
[2021-09-11] MEDS ORDERED: METOPROLOL TART 25 MG TABLET PO ONE (19:25)
[2021-09-11 20:00] VITALS: BP 148/92
[2021-09-12 06:12] LABS: HEMATOCRIT 28.4 % (42.0-52.0); HEMOGLOBIN 9.6 g/dl (13.5-17.5); MEAN CORPUSCULAR HEMOGLOBIN 31.2 pg (27.0-33.0); MEAN CORPUSCULAR HGB CONC 33.8 g/dl (32.0-36.5); MEAN CORPUSCULAR VOLUME 92.2 fl (80.0-96.0); PLATELET COUNT, AUTOMATED 123 10^3/uL (150-450); RED BLOOD COUNT 3.08 10^6/uL (4.30-6.10); WHITE BLOOD COUNT 6.3 10^3/uL (4.0-10.0)
[2021-09-12 06:32] VITALS: BP 150/69
[2021-09-12] MEDS: LEVOTHYROXINE 100MCG TABLET (0.1MG) PO SCH (06:37)
[2021-09-12 06:41] LABS: CALCIUM LEVEL 7.7 MG/DL (8.8-10.2); CREATININE FOR GFR 3.14 MG/DL (0.70-1.30); GLOMERULAR FILTRATION RATE 20.4 (>35); POTASSIUM SERUM 3.7 MEQ/L (3.5-5.1)
[2021-09-12] MEDS ORDERED: BUMETANIDE 1 MG TAB PO SCH (09:00)
[2021-09-12] MEDS: MONTELUKAST 10 MG TAB PO SCH (09:59)
[2021-09-12] MEDS: ASPIRIN 81 MG CHEW TABLET PO SCH (09:59)
[2021-09-12] MEDS: FERROUS SULFATE 325MG TAB PO SCH (09:59)
[2021-09-12] MEDS: allopurinoL 100 MG TAB PO SCH (09:59)
[2021-09-12] MEDS: amLODIPine 5 MG TAB PO SCH (09:59)
[2021-09-12] MEDS: SIMVASTATIN 40 MG TAB PO SCH (09:59)
[2021-09-12] MEDS: FENOFIBRATE 48MG TABLET (TRICOR) PO SCH (10:00)
[2021-09-12 10:01] VITALS: BP 137/72
[2021-09-12] MEDS: METOPROLOL SUCC *XL* 25MG TAB (TopROL *XL*) PO SCH (10:01)
[2021-09-12] MEDS: HEPARIN SOD (PORCINE) 5000UNITS/ML 1ML VIAL/SYRINGE SC SCH (10:01)
[2021-09-12] MEDS: HumaLOG INSULIN (NovoLOG) PER UNIT SC SCH (10:06)
[2021-09-13] MEDS ORDERED: LevoFLOXacin 500 MG TABLET PO SCH (14:00)
== END 2021-09-12 12:30 | disposition home or self-care (01) | DRG 291 ==
LOC: EDBD 16:03 → M ED 16:03 → M ED INP 21:36 → ENRESERV 09-10 13:58 → M MSPAV 09-10 15:07
PROVIDERS: ADMIT Internal Medicine; ATTEND Internal Medicine
DX: I13.0 Hypertensive heart and chronic kidney disease with heart failure and stage 1 through stage 4 chronic kidney disease, or unspecified chronic kidney disease (principal); J18.9 Pneumonia, unspecified organism; G93.41 Metabolic encephalopathy; N18.4 Chronic kidney disease, stage 4 (severe); N17.9 Acute kidney failure, unspecified; I50.9 Heart failure, unspecified; E11.22 Type 2 diabetes mellitus with diabetic chronic kidney disease; M10.9 Gout, unspecified; E78.5 Hyperlipidemia, unspecified; E03.9 Hypothyroidism, unspecified; E78.00 Pure hypercholesterolemia, unspecified; Z90.49 Acquired absence of other specified parts of digestive tract; Z20.822 Contact with and (suspected) exposure to COVID-19; R07.89 Other chest pain; D69.6 Thrombocytopenia, unspecified; Z79.899 Other long term (current) drug therapy; R25.1 Tremor, unspecified

== ENCOUNTER → 2021-10-16 | Outpatient (CLI) | payer MEDICARE ==
[~2021-10-16] MED LIST changes: +CIAL5TAB PO; +FARX1TAB3 PO; +FERR1TAB8 PO; +LANTINJ4 SC; +MONT10TA97 PO
== END ==
LOC: M RAD 13:13
PROVIDERS: ATTEND Family Medicine
DX: M79.675 Pain in left toe(s) (principal)

== ENCOUNTER → 2021-10-22 | Outpatient (CLI) | payer MEDICARE | LOC: M RAD 12:07 | PROVIDERS: ATTEND Family Medicine | DX: J44.9 Chronic obstructive pulmonary disease, unspecified (principal) ==

== ENCOUNTER → 2022-02-05 | Outpatient (REF) | payer MEDICARE ==
[2022-02-05 18:47] LABS: PERCENT SATURATION 19.2 % (19.7-50.0)
== END ==
LOC: M LAB REF 17:27
PROVIDERS: ATTEND Internal Medicine Nephrology
DX: D50.9 Iron deficiency anemia, unspecified (principal); D63.1 Anemia in chronic kidney disease; N18.9 Chronic kidney disease, unspecified